=== PATIENT | female | born 1960 | race Caucasian/White ===

== ENCOUNTER 2024-05-13 10:59 | Outpatient (OUT) | payer MEDICARE, SELFPAY ==
--- NOTE | 2024-05-13 07:50 | V.VEINS.HP ---
Vital Signs 05/13/24 11:21 Height 5 ft 6 in Weight 72.575 kg BMI 25.8 BP 120/62 BP Location Left Brachial BP Position Sitting BP Cuff Size Adult BP Source Manual Cuff Respiration 16 Pulse 60 Comment The patient's blood pressure is elevated. Varicose Veins Patient is a 64 year old female in this day with c/o bilateral leg varicose veins Willy Bearden MD personally performed the services described in this documentation, as scribed by Sly Gonzalez RN in my presence and it is both accurate and complete. Sly Bearden RN, am scribing for, and in the presence of, Dr. Willy Flores and in the presence of the patient. aching and dull 3 10 years Worsened in recent months: Yes standing elevating extremities Reports limb pain (bilateral lower legs) History of lower extremity trauma: No Superficial thrombophlebitis: No Family history of varicose veins: yes (Patient's father) Has patient had previous lower extremity venous surgery: No Patient has previously received the following treatment(s) for lower extremity varicose veins: Reports sclerotherapy (2014 Dr. Palacios) Does patient have a history of : yes Does patient intend to have future pregnancies: no Has patient had lower extremity venous scan with relux testing: No Support hose used: No (Patient is willing to purchase them and wear them accordingly) Problems walking or doing physical activity: No Do you walk much: Yes Do you stand much: Yes Review of Systems ROS Narrative Willy Bearden MD personally performed the services described in this documentation, as scribed by Sly Gonzalez RN in my presence and it is both accurate and complete. Sly Bearden RN, am scribing for, and in the presence of, Dr. Willy Flores and in the presence of the patient. Neurological Reports: numbness in extremities and weakness in extremities [facility] Medical History (Updated 05/13/24 @ 11:34 by Sly Gonzalez) Hypercholesteremia ?E78.00 - Pure hypercholesterolemia, unspecified (ICD-10) Tonsil and adenoid disease, chronic ?J35.9 - Chronic disease of tonsils and adenoids, unspecified (ICD-10) Cataract ?H26.9 - Unspecified cataract (ICD-10) Pain due to varicose veins of both lower extremities ?I83.813 - Varicose veins of bilateral lower extremities with pain (ICD-10) Surgical History (Updated 05/13/24 @ 11:33 by Sly Gonzalez) Hx of breast reduction, elective ?Z98.890 - Other specified postprocedural states (ICD-10) Family History (Updated 05/13/24 @ 11:37 by Sly Gonzalez) Father Family history of cancer Varicose veins of bilateral lower extremities with pain Carotid arterial disease Other Family history not known due to adoption Family history of COPD (chronic obstructive pulmonary disease) Family history of myocardial infarction Social History (Updated 05/13/24 @ 11:34 by Sly Gonzalez) Within the past year, how often did you have a drink containing alcohol: monthly or less Smoking status: Never smoker Non-prescribed substance use: denies use Meds Home Medications and Allergies Home Medications ?Medication ?Instructions ?Recorded ?Confirmed ?Type atorvastatin 10 mg tablet (Lipitor) 10 mg PO DAILY 05/13/24 05/13/24 History fluvoxamine 100 mg mg PO 05/13/24 History capsule,extended release 24 hr Exam Narrative Exam Narrative: IWilly MD personally performed the services described in this documentation, as scribed by Sly Gonzalez RN in my presence and it is both accurate and complete. ISly RN, am scribing for, and in the presence of, Dr. Willy Flores and in the presence of the patient. Constitutional Documenting provider has reviewed patient's vital signs: yes Common normals: oriented x3 Nutritional appearance: overweight Cardio Peripheral pulses: dorsalis pedis pulses present Extremity Common normals: normal capillary refill Right lower extremity: lower leg Right lower leg: inspection and palpation Left lower extremity: lower leg Left lower leg: inspection and palpation Neuro Common normals: oriented x3 Assessment and Plan Assessment and Plan (1) Pain due to varicose veins of both lower extremities: Plan Explained vein anatomy and physiology to patient.? Explained the development of varicose veins to patient.? Explained varicose vein treatments to patient, including laser ablation, microfoam chemical ablation (Varithena), injection sclerotherapy and microphlebectomy.? Explained potential risks and benefits of varicose vein treatments. Patient verbalizes understanding and wants to pursue varicose vein treatment. Scheduled to return on? 05/25 for reflux ultrasound exam and comprehensive consult with Dr. Flores.
[2024-05-13 11:21] VITALS: BP 120/62; PULSE 60; BMI 25.8
--- NOTE | 2024-05-13 12:21 | W.VEIN ---
Discharge Plan Discharge Disposition: Home, Self-Care Outpatient Diagnostics: VC Facility EST Comprehensive (Routine) Timeframe: 2 Weeks Facility: [facility] - Location: [facility]in Center Ordered By: Armando Olivas VC EXT Venous Reflux ALMA LMTD (Routine) Timeframe: 2 Weeks Facility: [facility] - Location: Vein Center Ordered By: Armando Olivas Print Language: Sinhala
== END 2024-05-13 11:00 | disposition home or self-care (01) ==
PROVIDERS: PCP Radiology Diagnostic Radiology; Visit Provider Radiology Diagnostic Radiology
DX: I83.813 Varicose veins of bilateral lower extremities with pain (principal)

== ENCOUNTER 2024-05-25 07:53 | Outpatient (OUT) | payer MEDICARE, SELFPAY ==
--- NOTE | 2024-05-25 07:54 | V.VEINS.HP ---
Vital Signs 05/25/24 08:01 Height 5 ft 6 in Weight 72.575 kg BMI 25.8 BP 116/58 BP Location Right Brachial BP Position Sitting BP Cuff Size Adult BP Source Manual Cuff Respiration 16 Pulse 62 Pulse Source Monitor Pulse Oximetry (%) 98 Oxygen Delivery Method Room Air Varicose Veins Patient is a 64 year old female in this day with c/o bilateral leg varicose veins Armando Bearden MD personally performed the services described in this documentation, as scribed by Sly Gonzalez RN in my presence and it is both accurate and complete. ISly RN, am scribing for, and in the presence of, Dr. Armando Olivas and in the presence of the patient. aching and dull 3 10 years Worsened in recent months: Yes standing elevating extremities Reports limb pain (bilateral lower legs) History of lower extremity trauma: No Superficial thrombophlebitis: No Family history of varicose veins: yes (Patient's father) Has patient had previous lower extremity venous surgery: No Patient has previously received the following treatment(s) for lower extremity varicose veins: Reports sclerotherapy (2014 Dr. Palacios) Does patient have a history of : yes Does patient intend to have future pregnancies: no Has patient had lower extremity venous scan with relux testing: No Support hose used: Yes Problems walking or doing physical activity: No How does it affect you: often has to stop activity and rest and elevate legs/feet Do you walk much: Yes Do you stand much: Yes Review of Systems ROS Narrative Armando Bearden MD personally performed the services described in this documentation, as scribed by Sly Gonzalez RN in my presence and it is both accurate and complete. Sly Bearden RN, am scribing for, and in the presence of, Dr. Armando Olivas and in the presence of the patient. Neurological Reports: numbness in extremities and weakness in extremities [facility] Medical History (Updated 05/13/24 @ 11:34 by Sly Gonzalez) Hypercholesteremia ?E78.00 - Pure hypercholesterolemia, unspecified (ICD-10) Tonsil and adenoid disease, chronic ?J35.9 - Chronic disease of tonsils and adenoids, unspecified (ICD-10) Cataract ?H26.9 - Unspecified cataract (ICD-10) Pain due to varicose veins of both lower extremities ?I83.813 - Varicose veins of bilateral lower extremities with pain (ICD-10) Surgical History (Updated 05/13/24 @ 11:33 by Sly Gonzalez) Hx of breast reduction, elective ?Z98.890 - Other specified postprocedural states (ICD-10) Family History (Updated 05/13/24 @ 11:37 by Sly Gonzalez) Father Family history of cancer Varicose veins of bilateral lower extremities with pain Carotid arterial disease Other Family history not known due to adoption Family history of COPD (chronic obstructive pulmonary disease) Family history of myocardial infarction Social History (Updated 05/13/24 @ 11:34 by Sly Gonzalez) Within the past year, how often did you have a drink containing alcohol: monthly or less Smoking status: Never smoker Non-prescribed substance use: denies use Meds Home Medications and Allergies Home Medications ?Medication ?Instructions ?Recorded ?Confirmed ?Type atorvastatin 10 mg tablet (Lipitor) 10 mg PO DAILY 05/13/24 05/13/24 History fluvoxamine 100 mg mg PO 05/13/24 History capsule,extended release 24 hr Allergies Allergy/AdvReac Type Severity Reaction Status Date / Time No Known Drug Allergies Allergy Verified 05/13/24 12:22 Exam Narrative Exam Narrative: Armando Bearden MD personally performed the services described in this documentation, as scribed by Sly Gonzalez RN in my presence and it is both accurate and complete. Sly Bearden RN, am scribing for, and in the presence of, Dr. Armando Olivas and in the presence of the patient.. Constitutional Documenting provider has reviewed patient's vital signs: yes Common normals: oriented x3 Nutritional appearance: overweight Cardio Peripheral pulses: dorsalis pedis pulses present Extremity Common normals: normal capillary refill Right lower extremity: lower leg Right lower leg: inspection and palpation Left lower extremity: lower leg Left lower leg: inspection and palpation Neuro Common normals: oriented x3 Results Additional Findings Additional findings: Bilateral leg reflux u/s reveals mild right and mild to moderate left great saphenous venous insufficiency with associated dilation. Mild to moderate bilateral leg anterior accessory saphenous vein dilation with dilation. Mild bilateral leg branch saphenous truncal varicosities. Armando Bearden MD personally performed the services described in this documentation, as scribed by Sly Gonzalez RN in my presence and it is both accurate and complete. I, Sly Carlos RN, am scribing for, and in the presence of, Dr. Armando Olivas and in the presence of the patient. Assessment and Plan Assessment and Plan (1) Pain due to varicose veins of both lower extremities: Plan Patient to continue use of bilateral leg knee high compressions stockings and return for f/u 3 month evaluation. If noted decrease in symptoms move forward with treatment at that time. Armando Bearden MD personally performed the services described in this documentation, as scribed by Sly Gonzalez RN in my presence and it is both accurate and complete. Sly Bearden RN, am scribing for, and in the presence of, Dr. Armando Olivas and in the presence of the patient.
--- NOTE | 2024-05-25 07:57 | W.VEIN ---
Discharge Plan Discharge Disposition: Home, Self-Care Follow Up Appointments: 08/09/2024 Plan of Treatment: f/u evaluation with physician post 3 month administration of bilateral leg knee high compression stockings Print Language: Persian Discharge Date/Time: 05/25/24 09:35
--- NOTE | 2024-05-25 07:58 | VEIN_ITS ---
Patient Name: SYED ESTEBAN MR#: [id number] : 1960 Exam Date: 05/25/2024 Ordering Doctor: DR ARMANDO GRIJALVA M.D. RADIOLOGY REPORT PROCEDURE: [facility] - OFFICE VISIT INITIAL COMPARISON: None. PROGRESS NOTES: 64-year-old female who presents with a 10 year history of lower extremity varicose veins with mild achy dull pain. No subcutaneous edema. The patient rates pain as a 3 on a scale of 1-10. The patient's symptoms are exacerbated by prolonged standing and are minimally relieved by compression stockings which she wore years ago but not in the recent past. The patient has previously been treated by Dr. Palacios with injection sclerotherapy. There has been a progression of symptoms in the past year. The patient denies any signs and symptoms to suggest arterial ischemia. The patient describes a family history significant for varicose veins in her father. Occasional social alcohol use. The patient has never smoked. No illicit drug use. Past surgical history significant for breast reduction. Current medical history significant for hypercholesterolemia, cataract. Family history of cancer varicose veins in carotid arterial disease. See nursing notes for medications. No history of deep venous thrombus or pulmonary embolus. See separate history and physical for medication list. Nursing notes were reviewed After history and physical exam I discussed at length the pathophysiology of venous hypertension and possible treatments, therapies and strategies available. We discussed at length the importance of elevating the lower extremities above the level of the heart, increased physical activity and compression stocking use. The patient was prescribed and received 20-30 mm by lateral thigh-high compression stockings to wear for the next 3-4 months before any treatments are started. We did discuss intravenous laser ablation, micro foam chemical ablation and injection sclerotherapy at length. Risks benefits alternatives were discussed Ultrasound venous reflux study performed the same day was discussed at length with the patient. The report demonstrates mild right and [id number] left great saphenous vein venous insufficiency. Mild to moderate bilateral anterior accessory saphenous vein venous insufficiency. Mild right and moderate left deep vein reflux period mild bilateral incompetent varicose veins. PHYSICAL EXAM: The right leg demonstrates mild scattered varicose, moderate diffuse reticular and spider veins along the thigh lower leg and ankles. No subcutaneous edema, active ulceration or hemosiderin staining The left leg demonstrates mild scattered varicose, moderate diffuse reticular and spider veins along the thigh lower leg and ankles. No subcutaneous edema, active ulceration or hemosiderin staining Both thighs, legs and feet were symmetrically warm to the touch. Good posterior tibial and dorsalis pedis pulses were present bilaterally. VEIN/VC Facility EST Comprehensive IMPRESSION: 1. Bilateral great bilateral anterior accessory saphenous vein venous insufficiency with some scattered dilatation in saphenofemoral junction reflux 2. Mild bilateral lower extremity varicose veins 3. No definite lower extremity subcutaneous edema 4. No definite flow significant arterial disease 5. CEAP: C2, Ep, As, Pr PLAN: 1. Begin daily use of bilateral thigh-high 20-30 mm compression stockings 2. Leg elevation and increased physical activity 3. Follow-up in 3 months Nurse notes, history and physical were reviewed and confirmed, see attached forms. The nurse was present throughout the physical exam and consultation Dictated by: Armando Grijalva MD on 05/25/2024 at 11:47 Approved by: Armando Grijalva MD on 05/25/2024 at 11:53
--- NOTE | 2024-05-25 07:58 | VEIN_ITS ---
Patient Name: SYED ESTEBAN MR#: [id number] : 1960 Exam Date: 05/25/2024 Ordering Doctor: DR ARMANDO GRIJALVA M.D. RADIOLOGY REPORT PROCEDURE: VC EXT VENOUS REFLUX ALMA LMTD COMPARISON: None. INDICATIONS: I83.813 - Varicose veins of bilateral lower extremities with pain TECHNIQUE: Duplex imaging of the lower extremity to assess the deep and superficial venous system for the presence of deep or superficial venous incompetence and to document the location and severity of disease. The study includes evaluation of the great saphenous vein (GSV), anterior accessory saphenous vein (AASV) and small saphenous vein (SSV). Patient scanned in reverse Trendelenburg and standing. FINDINGS: RIGHT LOWER EXTREMITY: Saphenofemoral Junction Reflux: Yes 10.0mm 1.2 sec GSV: Diam (mm) Reflux/ Time (sec) Proximal Thigh 3.8 Yes 0.6 Mid Thigh 3.2 Yes 0.5 Distal Thigh 1.9 Yes 0.5 Prox Calf 2.7 Yes 1.1 Mid Calf 2.2 Yes 0.4 Saphenopopliteal Junction Reflux: 5.5mm Yes 2.2 SSV: Proximal Calf 5.5 Yes 0.6 Mid Calf 3.7 Yes 0.5 AASV: Proximal Thigh 5.9 Yes 0.7 Mid Thigh 3.5 Yes 2.4 Distal Thigh Thrombi: No acute or chronic thrombus. Compressibility: Normal. Flow: Mild deep venous reflux. Preforator: Distal medial lower leg 3.9 mm with 2.9s reflux. Tech Note: Incompetent varicose vein proximal medial calf measures 4.0 mm with 4.5s reflux. Varicose vein distal medial thigh measures 3.0 mm with 0.5s reflux. LEFT LOWER EXTREMITY: Saphenofemoral Junction Reflux: Yes 8.1 mm 0.4 sec GSV: Diam (mm) Reflux/Time (sec) Proximal Thigh 6.4 Yes 0.4 Mid Thigh 3.5 Yes 1.2 Distal Thigh 3.8 Yes 1.4 Prox Calf 3.3 Yes 0.6 Mid Calf 3.0 Yes 1.1 Saphenopopliteal Junction Relux: 3.6 mm No SSV: Proximal Calf 2.6 No Mid Calf 3.4 Yes 4.2 AASV: Proximal Thigh 6.3 Yes 1.3 Mid Thigh 3.3 Yes 0.5 Distal Thigh Thrombi: No acute or chronic thrombus. Compressibility: Normal. Flow: Moderate deep venous reflux in femoral vein. Attache: Mid medial lower leg 3.7 mm with 1.3s reflux. Tech Note: Incompetent varicose vein proximal medial lower leg measures 2.4 mm with 4.0s reflux. CONCLUSION: 1. Mild right and [id number] left great saphenous vein venous insufficiency with mild dilatation 2. Mlvb-[id number] bilateral anterior accessory saphenous vein venous insufficiency with dilatation 3. Mild right and moderate left deep vein reflux 4. Mild bilateral incompetent varicose veins Dictated by: Armando Grijalva MD on 05/25/2024 at 08:58 Approved by: Armando Grijalva MD on 05/25/2024 at 09:01
[2024-05-25 08:01] VITALS: BP 116/58; PULSE 62; O2SAT 98; BMI 25.8
== END 2024-05-25 09:35 | disposition home or self-care (01) ==
PROVIDERS: PCP Radiology Diagnostic Radiology; Visit Provider Radiology Diagnostic Radiology
DX: I83.813 Varicose veins of bilateral lower extremities with pain (principal)
CPT/HCPCS: 93970; G0463

== ENCOUNTER 2024-08-09 09:01 | Outpatient (OUT) | payer MEDICARE, SELFPAY ==
--- NOTE | 2024-08-09 08:05 | V.VEINS.HP ---
Vital Signs 08/09/24 09:07 BP 116/68 BP Location Left Brachial BP Position Sitting BP Cuff Size Adult BP Source Manual Cuff Respiration 16 Pulse 61 Pulse Source Monitor Pulse Oximetry (%) 96 Oxygen Delivery Method Room Air Varicose Veins Patient in this day for 3 month follow up for bilateral painful varicose veins. Patient has been wearing knee high compression stockings consistently for the past 3 months with minimal improvement. Continues to have BLE pain daily. Armando Bearden MD personally performed the services described in this documentation, as scribed by Nel Valerio RN in my presence and it is both accurate and complete. INel RN, am scribing for, and in the presence of, Dr. Armando Olivas and in the presence of the patient. aching and dull 3 10 years Worsened in recent months: Yes standing elevating extremities Reports limb pain (bilateral lower legs) History of lower extremity trauma: No Superficial thrombophlebitis: No Family history of varicose veins: yes (Patient's father) Has patient had previous lower extremity venous surgery: No Patient has previously received the following treatment(s) for lower extremity varicose veins: Reports sclerotherapy (2014 Dr. Palacios) Does patient have a history of : yes Does patient intend to have future pregnancies: no Has patient had lower extremity venous scan with relux testing: No Support hose used: Yes Problems walking or doing physical activity: No How does it affect you: often has to stop activity and rest and elevate legs/feet Do you walk much: Yes Do you stand much: Yes Review of Systems ROS Narrative Armando Bearden MD personally performed the services described in this documentation, as scribed by Nel Valerio RN in my presence and it is both accurate and complete. Nel Bearden RN, am scribing for, and in the presence of, Dr. Armando Olivas and in the presence of the patient. Neurological Reports: numbness in extremities and weakness in extremities [facility] Medical History (Updated 05/13/24 @ 11:34 by Sly Gonzalez) Hypercholesteremia ?E78.00 - Pure hypercholesterolemia, unspecified (ICD-10) Tonsil and adenoid disease, chronic ?J35.9 - Chronic disease of tonsils and adenoids, unspecified (ICD-10) Cataract ?H26.9 - Unspecified cataract (ICD-10) Pain due to varicose veins of both lower extremities ?I83.813 - Varicose veins of bilateral lower extremities with pain (ICD-10) Surgical History (Updated 05/13/24 @ 11:33 by Sly Gonzalez) Hx of breast reduction, elective ?Z98.890 - Other specified postprocedural states (ICD-10) Family History (Updated 05/13/24 @ 11:37 by Sly Gonzalez) Father Family history of cancer Varicose veins of bilateral lower extremities with pain Carotid arterial disease Other Family history not known due to adoption Family history of COPD (chronic obstructive pulmonary disease) Family history of myocardial infarction Social History (Updated 05/13/24 @ 11:34 by Sly Gonzalez) Within the past year, how often did you have a drink containing alcohol: monthly or less Smoking status: Never smoker Non-prescribed substance use: denies use Meds Home Medications and Allergies Home Medications ?Medication ?Instructions ?Recorded ?Confirmed ?Type atorvastatin 10 mg tablet (Lipitor) 10 mg PO DAILY 05/13/24 05/13/24 History fluvoxamine 100 mg mg PO 05/13/24 History capsule,extended release 24 hr Allergies Allergy/AdvReac Type Severity Reaction Status Date / Time No Known Drug Allergies Allergy Verified 05/13/24 12:22 Exam Narrative Exam Narrative: IArmando MD personally performed the services described in this documentation, as scribed by Nel Valerio RN in my presence and it is both accurate and complete. INel RN, am scribing for, and in the presence of, Dr. Armando Olivas and in the presence of the patient. Constitutional Documenting provider has reviewed patient's vital signs: yes Common normals: oriented x3 Nutritional appearance: overweight Cardio Peripheral pulses: dorsalis pedis pulses present Extremity Common normals: normal capillary refill Right lower extremity: lower leg Right lower leg: inspection and palpation Left lower extremity: lower leg Left lower leg: inspection and palpation Neuro Common normals: oriented x3 Assessment and Plan Assessment and Plan (1) Pain due to varicose veins of both lower extremities: Plan Explained vein anatomy and physiology to patient. Explained the development of varicose veins to patient.? Explained varicose vein treatments to patient, including laser ablation, microfoam chemical ablation (Varithena), injection sclerotherapy and microphlebectomy.? Explained potential risks and benefits of varicose vein treatments.? Patient verbalizes understanding and wants to pursue varicose vein treatment.? Dr. Olivas examines patient and reviews results of bilateral leg reflux u/s.? Patient and Dr. Olivas creates a plan of care.? Patient also agrees to purchase bilateral thigh high compression stockings and wear them as educated.? Patient also educated on exercise and rest elevation of bilateral legs. Will prior authorize treatment plan with patients insurance and then call patient to schedule procedure when approved. IArmando MD personally performed the services described in this documentation, as scribed by Nel Valerio RN in my presence and it is both accurate and complete. I, Nel Valerio RN, am scribing for, and in the presence of, Dr. Armando Olivas and in the presence of the patient.
--- NOTE | 2024-08-09 08:07 | P.DS_ITS ---
Discharge Plan Discharge Disposition: Home, Self-Care Outpatient Diagnostics: VC Endovenous Ablation 1VeinLT (Routine) Timeframe: 2 Months Facility: [facility] [place] - Location: Vein Center Ordered By: Armando Olivas Follow Up Appointments: will call to schedule Plan of Treatment: Requires prior authorization. Will call patient to schedule when approved by insurance. Patient Instructions: Endovenous Ablation (GEN) Print Language: Comoran Discharge Date/Time: 08/09/24 09:41
--- NOTE | 2024-08-09 09:05 | VEIN_ITS ---
Patient Name: SYED ESTEBAN MR#: [id number] : 1960 Exam Date: 08/09/2024 Ordering Doctor: DR ARMANDO GRIJALVA M.D. [place] Corrected on: 08/10/2024; RADIOLOGY REPORT PROCEDURE: [facility] - OFFICE VISIT FOLLOW UP COMPARISON: None. PROGRESS NOTES: The patient reports wearing her compression stockings for the past 3 months. The patient has some moderate improvement in her symptoms but continues to have symptoms which she would like to have treatment for. Physical exam is stable with bilateral varicose reticular and spider veins, left greater than right The patient expressed a desire to proceed with treatment of the left leg at this time. VEIN/[facility] IMPRESSION: 1. Persistent varicose reticular and spider veins 2. Bilateral leg pain with mild improvement with the use of compression stockings PLAN: 1. Endovenous laser ablation of the left great saphenous vein. If the patient shows improvement we will proceed with intravenous laser ablation of the right great saphenous vein and possibly bilateral anterior accessory saphenous veins 2. Micro foam chemical ablation of incompetent varicose veins 3. Injection sclerotherapy reticular and spider veins Nurse notes, history and physical were reviewed and confirmed, see attached forms. The nurse was present throughout the physical exam and consultation Dictated by: Armando Grijalva MD on 08/09/2024 at 13:05 Approved by: Armando Grijalva MD on 08/09/2024 at 13:09 Dictated by: Armando Grijalva MD on 08/10/2024 at 08:27 Approved by: Armando Grijalva MD on 08/10/2024 at 08:27
[2024-08-09 09:07] VITALS: BP 116/68; PULSE 61; O2SAT 96
--- OUTSIDE RECORDS SUMMARY | 2024-08-09 09:22 | XMS_ITS | CCD ---
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 Keturah Flores DIRECTOR MEDICAL Work Phone: [facility] Comment on above: Acute pain of left k nee (Primary Dx); Right elbow pain Start: 11-30-2023 End: 11-30-2023 ambulatory KETURAH FLORES Not Available Start: 09-14-2023 End: 09-14-2023 ambulatory DASH PYLE Not Available Start: 09-12-2023 End: 09-12-2023 ambulatory MARSHA COOLEY Not Available Start: 04-01-2022 Current tobacco non-user cad cap copd pv dm Emmy Grove Work Phone: [facility] Work Phone: Start: 09-15-2020 End: 09-16-2020 Patient encounter procedure NATHALIA SHANE Facility:[facility] Start: 10-08-2019 End: 10-08-2019 Patient encounter procedure FLAQUITA RENAE Facility:[facility] Procedures Date Procedure Procedure Detail Performing Clinician Start: 07-23-2023 Mammography Keturah lauren DIRECTOR MEDICAL Work Phone: Start: 05-14-2017 Colonoscopy Keturah lauren DIRECTOR MEDICAL Work Phone: Plan of Treatment Date Care Activity Detail Author Start: 05-14-2027 Screening for malignant neoplasm of colon [facility] Start: 07-04-2026 Screening for malignant neoplasm of cervix [facility] Start: 07-23-2024 Screening for malignant neoplasm of breast Mammogram [facility] Start: 07-05-2024 End: 07-05-2024 Patient encounter procedure 07/05/2024 10:00 AM EDT Office Visit [facility] [address] [place] [address] Emmy Grove MD [address] [place] [address] [facility] Start: 12-11-2023 End: 12-11-2023 ambulatory 12/11/2023 8:30 AM EST Treatment [facility] [address] [facility] [address] [place] [address] Griselda Wilkins, SRIDEVI [facility] Start: 12-08-2023 End: 12-08-2023 ambulatory 12/08/2023 1:30 PM EST Treatment [facility] [address] [facility] [address] [place] [address] Lisbet Mathias PTA [facility] Start: 12-08-2023 End: 12-08-2023 ambulatory 12/08/2023 8:30 AM EST Treatment [facility] [address] [facility] [address] [place] [id number] Griselda Wilkins PTA Arrived [facility] Comment on above: Arrived Start: 12-04-2023 End: 12-04-2023 ambulatory [facility] Comment on above: Acute pain of left k nee (Primary Dx); Acute pain of right shoulder Start: 11-30-2023 End: 11-30-2024 XR Knee - left 4 Views XR knee 4+ views left Imaging Routine Acute pain of left knee Expected: 11/30/2023, Expires: 11/30/2024 [facility] Work Phone: Comment on above: Expected: 11/30/2023 , Expires: 11/30/2024 Start: 11-30-2023 End: 11-30-2023 Patient encounter procedure 11/30/2023 8:30 AM EST Office Visit [facility] [address] [place] [id number] Keturah Flores NP [address] [place] [address] Arrived [facility] Comment on above: Arrived Start: 1980 Screening for malignant neoplasm of cervix Pap Smear [facility] Start: 1959 Screening for malignant neoplasm of colon [facility] Immunizations Immunization Date Immunization Notes Care Provider Fa shira 07-17-2023 influenza, injectabl e, quadrivalent, preservative free Keturah Flores NP Work Phone: [facility] 08-08-2022 Moderna Bivalent Booster Vaccination Keturah Membrenopatrick DIRECTOR MEDICAL Work Phone: [facility] 08-08-2022 SARS-COV-2 (COVID-19 ) vaccine, mRNA, spike protein, LNP, bivalent, preservative free, 30 mcg/0.3 mL dose, brittani-sucrose formulation Keturah Michaelzpatrick DIRECTOR MEDICAL Work Phone: [facility] 07-08-2022 influenza, injectabl e, quadrivalent, preservative free Keturah Flores DIRECTOR MEDICAL Work Phone: [facility] 07-24-2021 influenza, injectabl e, quadrivalent, preservative free Keturah Flores DIRECTOR MEDICAL Work Phone: [facility] 07-16-2020 influenza, injectabl e, quadrivalent, preservative free Keturah Flores DIRECTOR MEDICAL Work Phone: [facility] 10-08-2019 tetanus toxoid, redu valentino diphtheria toxoid, and acellular pertussis vaccine, adsorbed Keturah Flores DIRECTOR MEDICAL Work Phone: [facility] 08-24-2019 influenza, injectabl e, quadrivalent, contains preservative Keturah Flores DIRECTOR MEDICAL Work Phone: [facility] 04-13-2019 zoster vaccine recombinant Keturah Flores DIRECTOR MEDICAL Work Phone: [facility] 01-24-2019 zoster vaccine recombinant Keturah Flores DIRECTOR MEDICAL Work Phone: [facility] 08-11-2018 influenza, injectabl e, quadrivalent, contains preservative Keturah Flores DIRECTOR MEDICAL Work Phone: [facility] 08-17-2017 influenza, injectabl e, quadrivalent, preservative free Keturah Flores DIRECTOR MEDICAL Work Phone: [facility] 08-11-2016 influenza, injectabl e, quadrivalent, preservative free Keturah Flores DIRECTOR MEDICAL Work Phone: [facility] 08-20-2015 influenza, seasonal, injectable, preservative free Keturah Faustintrick DIRECTOR MEDICAL Work Phone: [facility] 07-06-2015 zoster vaccine, live Keturah Faustintrick DIRECTOR MEDICAL Work Phone: [facility] 08-11-2014 influenza, seasonal, injectable, preservative free Keturah Faustintrick DIRECTOR MEDICAL Work Phone: [facility] 06-09-2013 zoster vaccine, live Keturah Faustintrick DIRECTOR MEDICAL Work Phone: [facility] 05-20-2011 tetanus and diphther ia toxoids, adsorbed, preservative free, for adult use (5 Lf of tetanus toxoid and 2 Lf of diphtheria toxoid) Keturah Membrenopatrick DIRECTOR MEDICAL Work Phone: [facility] 05-20-2011 tetanus toxoid, redu valentino diphtheria toxoid, and acellular pertussis vaccine, adsorbed Keturahchung FaustinFlores DIRECTOR MEDICAL Work Phone: [facility] 10-23-2009 novel [id number], preservative-free, injectable Keturah Faustintrick DIRECTOR MEDICAL Work Phone: [facility] Payers Date Payer Category Payer Self-pay 2024 Medicare [id number] 2023 Managed Care HMO (unspecified) AET[employer] AETNA [id number] 2023-Present [address] [place] [address] HMO [id number] 2023 Private Health Insurance [id number] 1959 Unknown [id number] 1959 Unknown [id number] [id number] 1959 Unknown [id number] 2.16.840.1.196595.3.579.2.5 1959 Unknown [id number] 2.16.840.1.835784.3.579.2.1 286 1959 Unknown [id number] 2.16.840.1.120166.3.579.2.1 259 1959 Unknown [id number] 2.16.840.1.964935.3.579.2.1 259 1959 Unknown [id number] 2.16.840.1.215533.3.579.2.1 259 1959 Unknown [id number] 2.16.840.1.733865.3.579.2.1 259 1959 Unknown [id number] 2.16.840.1.354793.3.579.2.1 259 1959 Unknown [id number] 2.16.840.1.614174.3.579.2.1 259 1959 Unknown [id number] 2.16.840.1.008449.3.579.2.1 259 1959 Unknown [id number] 2.16.840.1.282328.3.579.2.1 259 1959 Unknown [id number] 2.16.840.1.380833.3.579.2.1 259 1959 Unknown [id number] 2.16.840.1.890331.3.579.2.1 259 1959 Unknown [id number] 2.16.840.1.612182.3.579.2.1 259 1959 Unknown [id number] 2.16.840.1.288569.3.579.2.1 259 1959 Unknown [id number] 2.16.840.1.577085.3.579.2.1 259 Unknown [facility] Unknown [id number] 2.16.840.1.572272.3.579.2.5 31 Social History Date Type Detail Facility Start: 03-19-2023 Tobacco smoking status NHIS Never smoked tobacco [facility] Work Phone: Start: 03-19-2023 Tobacco use and exposure Smokeless tobacco non-user [facility] Start: 09-12-2023 End: 11-30-2023 Alcohol intake Current drinker of alcohol (finding) [facility] Start: 07-16-2023 End: 11-30-2023 History of Social function [facility] Start: 07-16-2023 End: 11-30-2023 Humiliation, Afraid, Rape, and Kick questionnaire [HARK] [facility] Within the last year , have you been afraid of your partner or ex-partner? No [facility] Do you belong to any clubs or organizations such as yarsanism groups, unions, fraternal or athletic groups, or school groups? Yes [facility] Are you now , , , , never or living with a partner? [facility] How often to you hav e a drink containing alcohol? Monthly or less [facility] How many standard dr inks containing alcohol do you have on a typical day? 1 or 2 [facility] How often do you hav e 6 or more drinks on 1 occasion? Never [facility] How hard is it for y ou to pay for the very basics like food, housing, medical care, and heating Not hard at all [facility] Do you feel stress - tense, restless, nervous, or anxious, or unable to sleep at night because your mind is troubled all the time - these days [OSQ] Not at all [facility] (I/We) worried wheth er (my/our) food would run out before (I/we) got money to buy more. Never true [facility] Start: 07-16-2023 Alcohol Comment 1-0 drinks a week [facility] Start: 1960 Sex Assigned At Female [facility] Start: 03-19-2023 Gender identity Identifies as female gender (finding) [facility] Start: 03-19-2023 Sexual orientation Heterosexual (finding) [facility] Goals Date Patient Goal Desired Activity /State Personal health goal History of Present illness Narrative 11-30-2023 Keturah Flores, LAWRENCE - 11/30/2023 8:30 AM EST Note Date & Type Note Facility 11-30-2023 History of Presen t illness Narrative Blanca Mcginnis is a 63 y.o. female presents with chief complaint of Knee Pain HPI: HPI Patient presents today with left knee pain, swelling and tenderness. Pt states she injuried it years ago while in high school tumbling she fel between two mats and her knee swelled up. Pt also states she is having left elbow pain, she was given exercises and wondering if she should do those so often. SUBJECTIVE: MEDICATIONS: Current Outpatient Medications Medication Instructions atorvastatin (LIPITOR) 10 mg, Oral, Every 24 hours fluvoxaMINE (LUVOX) 100 mg, Oral, Every 12 hours, Takes 150mg at night Magnesium 500 MG capsule 1 tablet, Oral, Every 24 hours melatonin 5 mg, Oral, Nightly PRN REVIEW OF SYMPTOMS: Review of Systems Constitutional: Negative for chills and fatigue. HENT: Negative for ear discharge, ear pain, rhinorrhea and sore throat. Eyes: Negative for pain and redness. Respiratory: Negative for cough and chest tightness. Cardiovascular: Negative for chest pain and palpitations. Gastrointestinal: Negative for abdominal distention and abdominal pain. Genitourinary: Negative for difficulty urinating and frequency. Musculoskeletal: Negative for arthralgias and gait problem. Skin: Negative. Neurological: Negative for dizziness and numbness. Endocrine: Negative. Allergic/Immunologic: Negative. OBJECTIVE: Visit Vitals BP 126/80 Pulse 64 Ht 5' 6 Wt 163 lb 9.6 oz SpO2 96% BMI 26.41 kg/m Smoking Status Never BSA 1.86 m Physical Exam Vitals reviewed. Cardiovascular: Rate and Rhythm: Normal rate and regular rhythm. Pulses: Normal pulses. Heart sounds: Normal heart sounds. Pulmonary: Effort: Pulmonary effort is normal. Breath sounds: Normal breath sounds. Abdominal: General: Abdomen is flat. Bowel sounds are normal. Palpations: Abdomen is soft. Musculoskeletal: Left knee: Swelling and crepitus present. No erythema. Decreased range of motion. Tenderness present over the medial joint line. Skin: General: Skin is warm and dry. Neurological: General: No focal deficit present. Mental Status: She is oriented to person, place, and time. ASSESSMENT AND PLAN: Assessment/Plan Diagnoses and all orders for this visit: Acute pain of left knee - XR knee 4+ views left; Future Ice, rest, ibuprofen. Knee sleeve when working. Await results. May need PT or ortho. Right elbow pain Continue on exercises that were provided. Rest when it gets painful. documented in this encounter [facility] Evaluation note Note Date & Type Note Facility Evaluation note Diagnosis Acute pain of left knee- Primary Right elbow pain Pain in joint, upper arm documented in this encounter [facility] Evaluation note Note Date & Type Note Facility Evaluation note Diagnosis Acute pain of left knee documented in this encounter [facility] Evaluation note Note Date & Type Note Facility Evaluation note Diagnosis Acute pain of left knee- Primary documented in this encounter [facility] History of Present illness Narrative Note Date & Type Note Facility History of Present illness Narrative Triage note, vital signs, past medical history and allergies -tdyn-scf female with complaints of a laceration to her left middle fingertip. She states today she was cutting watermelon and she cut the tip of her left finger. There is a 1 cm avulsion at the lateral tip of the left middle finger with nail involvement. Bleeding is controlled. Patient has good sensation and movement in the finger. She states she is up-to-date on her tetanus vaccine. She denies any significant past medical problems. [facility] Work Phone: Summary Purpose Family History No Family History Records FoundNo Family History Records FoundNo Family History Records FoundNo Family History Records FoundNo Family History Records FoundNo Family History Records Found Advance Directives No Advanced Directives Records FoundNo Advanced Directives Records FoundNo Advanced Directives Records FoundNo Advanced Directives Records FoundNo Advanced Directives Records FoundNo Advanced Directives Records Found Chief Complaint laceration to finger cutting watermelon Additional Source Comments INFORMATION SOURCE (unrecogn ized section and content) DATE CREATED AUTHOR 09/20/2020 [facility] DATE CREATED AUTHOR AUTHOR'S ORGANIZ ATION 04/02/2022 [employer] DATE CREATED AUTHOR AUTHOR'S ORGANIZ ATION 07/08/2022 [facility] dical Specialist DATE CREATED AUTHOR AUTHOR'S ORGANIZ ATION 01/15/2024 [facility] DATE CREATED AUTHOR AUTHOR'S ORGANIZ ATION 07/30/2024 [facility] DATE CREATED AUTHOR AUTHOR'S ORGANIZ ATION 07/30/2024 [facility]ists EPIC Care Teams (unrecognized sec tion and content) Case Consultant Relationship Specialty Start Date End Date Emmy Grove MD [address] [place] [address] PCP - General Family Medicine 03/19/23 Saadia Deras NP [address] [place] [address] PCP - Medical [employer] 03/26/23 Case Consultant Relationship Specialty Start Date End Date Emmy Grove MD [address] [place] [address] PCP - General Family Medicine 03/19/23 Saadia Deras NP [address] [place] [address] PCP - Medical [employer] 03/26/23 Case Consultant Relationship Specialty Start Date End Date Emmy Grove MD [address] [place] [address] PCP - General Family Medicine 03/19/23 Saadia Deras NP [address] [place] [address] PCP - Medical [employer] 03/26/23 Case Consultant Relationship Specialty Start Date End Date Emmy Grove MD [address] [place] [address] PCP - General Family Medicine 03/19/23 Saadia Deras NP [address] [place] [address] PCP - Medical [employer] 03/26/23 Case Consultant Relationship Specialty Start Date End Date Emmy Grove MD [address] [facility] [place] [address] PCP - General Family Medicine 03/19/23 Saadia Deras NP [address] [facility] [place] [address] PCP - Medical [employer] 03/26/23 Case Consultant Relationship Specialty Start Date End Date Emmy Grove MD [address] [facility] [place] [address] PCP - General Family Medicine 03/19/23 Saadia Deras NP [address] [facility] [place] [address] PCP - Medical [employer] 03/26/23 Case Consultant Relationship Specialty Start Date End Date Emmy Grove MD [address] [facility] [place] [address] PCP - General Family Medicine 03/19/23 Saadia Deras NP [address] [facility] [place] [address] PCP - Medical [employer] 03/26/23 Reason for Visit (unrecogniz ed section and content) Reason Comments Knee Pain Specialty Diagnoses / Procedures Referred By Imer motta Referred To Contact Physical Therapy Diagnoses Acute pain of left knee Procedures IN OFFICE/OUTPATIENT NEW HIGH MDM 60 MINUTES Keturah Flores NP [address] [place] [address] Jose Molina, PT [address] [facility] [address] [place] [address] Referral ID Status Reason Start Date Expiration Date Visits Requested Visits Authorized [id number] Authorized Specialty Services Required 12/01/2023 05/29/2024 99 99 FOR RECORDS PERTAINING TO PATIENTS WHO ARE OR HAVE BEEN ENROLLED IN A CHEMICAL DEPENDENCY/SUBSTANCEABUSE PROGRAM, SOME INFORMATION MAY BE OMITTED. This clinical summary was aggregated from multiple sources. Caution should be exercised in using it in the provision of clinical care. This summary normalizes information from multiple sources, and as a consequence, information in this document may materially change the coding, format and clinical context of patient data. In addition, data may be omitted in some cases. CLINICAL DECISIONS SHOULD BE BASED ON THE PRIMARY CLINICAL RECORDS. [facility] [employer] [facility]. provides no warranty or guarantee of the accuracy or completeness of information in this document.
== END 2024-08-09 09:41 | disposition home or self-care (01) ==
LOC: VC 09:02
PROVIDERS: PCP Radiology Diagnostic Radiology; Visit Provider Radiology Diagnostic Radiology
DX: I83.813 Varicose veins of bilateral lower extremities with pain (principal)
CPT/HCPCS: G0463

== ENCOUNTER 2024-08-29 08:44 | Outpatient (OUT) | payer MEDICARE, SELFPAY ==
--- NOTE | 2024-08-26 07:26 | VEINCLINIC_ITS ---
Vital Signs 08/29/24 09:08 BP 120/58 BP Location Left Brachial BP Position Sitting BP Cuff Size Adult BP Source Manual Cuff Respiration 16 Pulse 61 Pulse Source Monitor Pulse Oximetry (%) 96 Oxygen Delivery Method Room Air Comment The patient's blood pressure is elevated. Varicose Veins Patient in this day for EVLT of left GSV Armando Bearden MD personally performed the services described in this documentation, as scribed by Sly Gonzalez RN in my presence and it is both accurate and complete. ISly RN, am scribing for, and in the presence of, Dr. Armando Olivas and in the presence of the patient. aching and dull 3 10 years Worsened in recent months: Yes standing elevating extremities Reports limb pain (bilateral lower legs) History of lower extremity trauma: No Superficial thrombophlebitis: No Family history of varicose veins: yes (Patient's father) Has patient had previous lower extremity venous surgery: No Patient has previously received the following treatment(s) for lower extremity varicose veins: Reports sclerotherapy (2014 Dr. Palacios) Does patient have a history of : yes Does patient intend to have future pregnancies: no Has patient had lower extremity venous scan with relux testing: No Support hose used: Yes Problems walking or doing physical activity: No How does it affect you: often has to stop activity and rest and elevate legs/feet Do you walk much: Yes Do you stand much: Yes Review of Systems ROS Narrative Armando Bearden MD personally performed the services described in this documentation, as scribed by Sly Gonzalez RN in my presence and it is both accurate and complete. ISly RN, am scribing for, and in the presence of, Dr. Armando Olivas and in the presence of the patient. Neurological Reports: numbness in extremities and weakness in extremities [facility] Medical History (Updated 05/13/24 @ 11:34 by Sly Gonzalez) Hypercholesteremia ?E78.00 - Pure hypercholesterolemia, unspecified (ICD-10) Tonsil and adenoid disease, chronic ?J35.9 - Chronic disease of tonsils and adenoids, unspecified (ICD-10) Cataract ?H26.9 - Unspecified cataract (ICD-10) Pain due to varicose veins of both lower extremities ?I83.813 - Varicose veins of bilateral lower extremities with pain (ICD-10) Surgical History (Updated 08/29/24 @ 09:30 by Sly Gonzalez) Status post laser ablation of incompetent vein ?Z98.890 - Other specified postprocedural states (ICD-10) Hx of breast reduction, elective ?Z98.890 - Other specified postprocedural states (ICD-10) Family History (Updated 05/13/24 @ 11:37 by Sly Gonzalez) Father Family history of cancer Varicose veins of bilateral lower extremities with pain Carotid arterial disease Other Family history not known due to adoption Family history of COPD (chronic obstructive pulmonary disease) Family history of myocardial infarction Social History (Updated 05/13/24 @ 11:34 by Sly Gonzalez) Within the past year, how often did you have a drink containing alcohol: monthly or less Smoking status: Never smoker Non-prescribed substance use: denies use Meds Home Medications and Allergies Home Medications ?Medication ?Instructions ?Recorded ?Confirmed ?Type atorvastatin 10 mg tablet (Lipitor) 10 mg PO DAILY 05/13/24 05/13/24 History fluvoxamine 100 mg mg PO 05/13/24 History capsule,extended release 24 hr Allergies Allergy/AdvReac Type Severity Reaction Status Date / Time No Known Drug Allergies Allergy Verified 05/13/24 12:22 Exam Narrative Exam Narrative: Armando Bearden MD personally performed the services described in this documentation, as scribed by Sly Gonzalez RN in my presence and it is both accurate and complete. Sly Bearden RN, am scribing for, and in the presence of, Dr. Armando Olivas and in the presence of the patient. Constitutional Documenting provider has reviewed patient's vital signs: yes Common normals: oriented x3 Nutritional appearance: overweight Cardio Peripheral pulses: dorsalis pedis pulses present Extremity Common normals: normal capillary refill Right lower extremity: lower leg Right lower leg: inspection and palpation Left lower extremity: lower leg Left lower leg: inspection and palpation Neuro Common normals: oriented x3 Assessment and Plan Assessment and Plan (1) Pain due to varicose veins of both lower extremities: Plan f/u evaluation with physician along with left leg limited u/s Armando Bearden MD personally performed the services described in this do cumentation, as scribed by Sly Gonzalez RN in my presence and it is both accurate and complete. Sly Bearden RN, am scribing for, and in the presence of, Dr. Armando Olivas and in the presence of the patient. Procedures Procedure Instructions Procedures Plan of care: Risks and benefits of the procedure were discussed at length and informed written consent was obtained.? Time-out completed for verification of correct patient, procedure and site.? Staff present during time-out: lSy Gonzalez RN,? Armando Olivas MD, Magdalena Mustafa [facility] Time Out Time_941 Patient prepped and procedure performed in usual sterile fashion. Risk of injury related to use of Diode laser and/or laser devices? __CR___ ? Serial number of laser used :? [id number] Control panel self test performed, electrical cords in good condition, floor is dry, basin of water available, fire extinguisher in close proximity_CR__ Polycarbonate goggles available and Laser warning signs outside of doors___CR__ Eye protection provided to patient and staff in room_CR___ Use of laser retardant drapes and dull blackened instruments as directed__CR___ Use of nonflammable prep solutions and use of saline soaked sponges to protect tissues as indicated _CR___ Length ___14 cm Laser operated by _Dr. Olivas Physician verbal confirmation laser locked in place__CR__ Laser start time (date and time) _08/29/2024@_0951 Laser stop time(date and time) __08/29/2024@_0953 Messer _8.0___ Average laser use __895____Joules Average laser use____112____seconds Pulse continuous ___CR_? Pulse intermittent ___ Amount of Tumescent used __150cc____ Evaluated patient for signs and symptoms of electrical injury __CR___ ? Skin clear at insertion site __CR___ Patient tolerated procedure well.? Left leg Coban dressing applied to access site.? Applied Left thigh high leg compression stocking. Will return on 09/05/2024 for Left leg limited venous ultrasound and exam. IArmando MD personally performed the services described in this documentation, as scribed by Sly Gonzalez RN in my presence and it is both accurate and complete. I, Sly Gonzalez RN, am scribing for, and in the presence of, Dr. Armando Olivas and in the presence of the patient.
--- NOTE | 2024-08-26 07:37 | P.DS_ITS ---
Discharge Plan Discharge Disposition: Home, Self-Care Outpatient Diagnostics: VC Facility EST LMTD (Routine) Timeframe: 2 Weeks Facility: [facility] - Location: Vein Center Ordered By: Armando Olivas VC EXT Venous LT Limited (Routine) Timeframe: 2 Weeks Facility: [facility] - Location: Vein Center Ordered By: Armando Olivas Follow Up Appointments: 09/05/2024 Plan of Treatment: f/u evaluation along with left leg limited u/s Patient Instructions: Endovenous Ablation (DC) Print Language: Trinidadian Discharge Date/Time: 08/29/24 09:41
[2024-08-29] MEDS: 0.9 % SODIUM CHLORIDE 500 ML, LIDOCAINE HCL 20 ML, SODIUM BICARBONATE 10 MEQ INJ (08:59)
[2024-08-29] MEDS: LIDOCAINE HCL 1% 100 MG/10 ML MDV INJ (08:59)
--- NOTE | 2024-08-29 09:01 | VEIN_ITS ---
[address] [address] Patient Name: SYED ESTEBAN MRN: [id number] date: 1960 Sex: F Assigned Patient Location: Current Patient Location: Accession/Order Number: [id number] Exam Date: 08/29/2024 09:04 Report Date: 08/29/2024 10:00 At the request of: RUBY GRIJALVA Procedure: VC Endovenous Ablation 1VeinLT EXAMINATION: VC Endovenous Ablation 1Vein left great saphenous vein HISTORY: I83.813 - Varicose veins of bilateral lower extremities w... COMPARISON: No relevant comparison available. TECHNIQUE: The risks and benefits of the procedure had been previously discussed, and were rediscussed at length. Informed written consent was obtained. Ara Foster and Sly Gonzalez assisted. Time out procedure was performed. The left lower extremity was prepared and draped in the usual sterile fashion to allow knee flexion in the sterile field. Duplex ultrasound probe was draped in a sterile cover, sterile transmission gel was used. Venous mapping was performed with the areas of dilation and large tributaries marked. The total length was 14 cm from the entry mid thigh to 3 cm below the saphenofemoral junction. The diameter of the greater saphenous vein ranged from 5-7 mm. A 30 gauge needle and 1% buffered lidocaine was used to anesthetize the entry site. A 4 mm incision was made with a scalpel and the saphenous vein was entered percutaneously under direct ultrasound guidance with a micropuncture set, a single stick was successful in gaining access. A micro-guide wire was inserted and the needle removed. A micro-set including a dilator was inserted over the microwire and the needle and dilator were removed. A 0.018 guide wire was inserted through the micro-set and threaded through the saphenous vein to the saphenofemoral junction. The dilator was removed and an introducer sheath was inserted over the wire until the end of the sheath entered the saphenofemoral junction. The dilator and wire were removed and the 600 micron fiber was introduced and placed and positioned so that it extended beyond the sheath and was 3 cm peripheral to the saphenofemoral femoral junction. Final position of the fiber was determined by ultrasound guidance and duplex imaging. Tumescent anesthetic was delivered by ultrasound guidance. 150 cc of fluid was delivered along the entire course of the saphenous vein. The solution consisted of 1000 cc of normal saline with 40 mL of 1% lidocaine and 20 mL of sodium bicarbonate. A final positioning check was made. The energy source was turned on by means of the foot pedal and the fiber and sheath were withdrawn. The total number of Joules delivered was 895. The laser was active for 112 seconds under continuous pulse, average laser use of 8 J. Laser start time 9:51 AM 08/29/2024 . Laser stop time 9:53 AM 08/29/2024 . A duplex ultrasound revealed compressibility and flow at the saphenofemoral junction immediately after the procedure. Hemostasis at the access site was achieved. The skin incision of the saphenous vein was closed with a 4 x 4. A compression stocking was applied. Postop instructions were given. A follow up appointment was recommended and scheduled. The patient tolerated the procedure well and was discharged in good condition . VEIN/VC Endovenous Ablation 1VeinLT IMPRESSION: Technically successful endovenous laser ablation of the left great saphenous vein Electronically authenticated by: RUBY GRIJALVA Date: 08/29/2024 10:00
[2024-08-29 09:08] VITALS: BP 120/58; PULSE 61; O2SAT 96
== END 2024-08-29 09:41 | disposition home or self-care (01) ==
LOC: VC 08:59
PROVIDERS: PCP Radiology Diagnostic Radiology; Visit Provider Radiology Diagnostic Radiology
DX: I83.813 Varicose veins of bilateral lower extremities with pain (principal)
CPT/HCPCS: 36478

== ENCOUNTER 2024-09-05 08:30 | Outpatient (OUT) | payer MEDICARE, SELFPAY ==
--- NOTE | 2024-09-05 08:32 | VEIN_ITS ---
Patient Name: SYED ESTEBAN MR#: [id number] : 1960 Exam Date: 09/05/2024 Ordering Doctor: DR ARMANDO GRIJALVA M.D. RADIOLOGY REPORT PROCEDURE: [facility] - OFFICE VISIT FOLLOW UP COMPARISON: [facility], 08/09/2024. PROGRESS NOTES: The patient reports no significant problems following intravenous laser ablation of the left great saphenous vein. The patient has worn her compression stocking and exercise. The patient did not require oral analgesics. Physical exam demonstrates the incision to be sealed. No bruising, erythema, warmth or ulceration. Review of the ultrasound performed the same day demonstrates occlusive thrombus extending throughout the treated left great saphenous vein with heat induced thrombus 1.3 cm from the saphenofemoral junction to the epigastric vein is patent. No deep vein thrombus. The patient expressed a desire to proceed with treatment of reticular and spider veins with injection sclerotherapy. VEIN/[facility] IMPRESSION: 1. Successful ablation of the left great saphenous vein. 2. Persistent bilateral reticular and spider veins. PLAN: Injection sclerotherapy Nurse notes, history and physical were reviewed and confirmed, see attached forms. The nurse was present throughout the physical exam and consultation Dictated by: Armando Grijalva MD on 09/05/2024 at 08:58 Approved by: Armando Grijalva MD on 09/05/2024 at 09:03
--- NOTE | 2024-09-05 08:32 | VEIN_ITS ---
Patient Name: SYED ESTEBAN MR#: [id number] : 1960 Exam Date: 09/05/2024 Ordering Doctor: DR ARMANDO GIRJALVA M.D. RADIOLOGY REPORT PROCEDURE: VC EXT VENOUS LT LIMITED COMPARISON: None. INDICATIONS: I80.02 - Phlebitis and thrombophlebitis of superficial veins left leg TECHNIQUE: Lower extremity herrera scale and Duplex Doppler evaluation of the deep venous system from the inguinal ligament through the calf veins. FINDINGS: REGION: Left lower extremity. THROMBI: Negative for DVT. Heat induced thrombus in left GSV 1.3 cm from SFJ and extends to mid thigh. COMPRESSIBILITY: Non-compressible segments corresponding to thrombus FLOW: Areas of no flow corresponding to thrombus CONCLUSION: Post ablation occlusion of the treated left great saphenous vein with heat induced thrombus 1.3 cm from the saphenofemoral junction. Dictated by: Armando Grijalva MD on 09/05/2024 at 08:49 Approved by: Armando Grijalva MD on 09/05/2024 at 08:50
[2024-09-05 08:56] VITALS: BMI 25.8
--- NOTE | 2024-09-05 08:56 | V.VEINS.HP ---
Vital Signs 09/05/24 08:56 Height 5 ft 6 in Weight 72.575 kg BMI 25.8 Varicose Veins Patient in today for follow up ultrasound of left lower extremity following EVLT of left GSV completed on 08/29/24. Armando Bearden MD personally performed the services described in this documentation, as scribed by Magdalena Mustafa RDMS in my presence and it is both accurate and complete. IMagdalena RDMS, am scribing for, and in the presence of, Dr. Armando Olivas and in the presence of the patient. aching and dull 3 10 years Worsened in recent months: Yes standing elevating extremities Reports limb pain (bilateral lower legs) History of lower extremity trauma: No Superficial thrombophlebitis: No Family history of varicose veins: yes (Patient's father) Has patient had previous lower extremity venous surgery: No Patient has previously received the following treatment(s) for lower extremity varicose veins: Reports sclerotherapy (2014 Dr. Palacios) Does patient have a history of : yes Does patient intend to have future pregnancies: no Has patient had lower extremity venous scan with relux testing: No Support hose used: Yes Problems walking or doing physical activity: No How does it affect you: often has to stop activity and rest and elevate legs/feet Do you walk much: Yes Do you stand much: Yes Review of Systems ROS Narrative Armando Bearden MD personally performed the services described in this documentation, as scribed by Magdalena Mustafa RDMS in my presence and it is both accurate and complete. IMagdalena RDMS, am scribing for, and in the presence of, Dr. Armando Olivas and in the presence of the patient. Neurological Reports: numbness in extremities and weakness in extremities [facility] Medical History (Updated 09/05/24 @ 09:02 by Magdalena Mustafa) Phlebitis and thrombophlebitis of superficial vessels of left lower extremity ?I80.02 - Phlebitis and thrombophlebitis of superficial vessels of left lower extremity (ICD-10) Hypercholesteremia ?E78.00 - Pure hypercholesterolemia, unspecified (ICD-10) Tonsil and adenoid disease, chronic ?J35.9 - Chronic disease of tonsils and adenoids, unspecified (ICD-10) Cataract ?H26.9 - Unspecified cataract (ICD-10) Pain due to varicose veins of both lower extremities ?I83.813 - Varicose veins of bilateral lower extremities with pain (ICD-10) Surgical History (Updated 08/29/24 @ 09:30 by Sly Gonzalez) Status post laser ablation of incompetent vein ?Z98.890 - Other specified postprocedural states (ICD-10) Hx of breast reduction, elective ?Z98.890 - Other specified postprocedural states (ICD-10) Family History (Updated 05/13/24 @ 11:37 by Sly Gonzalez) Father Family history of cancer Varicose veins of bilateral lower extremities with pain Carotid arterial disease Other Family history not known due to adoption Family history of COPD (chronic obstructive pulmonary disease) Family history of myocardial infarction Social History (Updated 05/13/24 @ 11:34 by Sly Gonzalez) Within the past year, how often did you have a drink containing alcohol: monthly or less Smoking status: Never smoker Non-prescribed substance use: denies use Meds Home Medications and Allergies Home Medications ?Medication ?Instructions ?Recorded ?Confirmed ?Type atorvastatin 10 mg tablet (Lipitor) 10 mg PO DAILY 05/13/24 05/13/24 History fluvoxamine 100 mg mg PO 05/13/24 History capsule,extended release 24 hr Allergies Allergy/AdvReac Type Severity Reaction Status Date / Time No Known Drug Allergies Allergy Verified 05/13/24 12:22 Exam Narrative Exam Narrative: Armando Bearden MD personally performed the services described in this documentation, as scribed by Magdalena Mustafa RDMS in my presence and it is both accurate and complete. Magdalena Bearden RDMS am scribing for, and in the presence of, Dr. Armando Olivas and in the presence of the patient. Results Imaging Venous US: Radiologist's impression: Heat induced thrombus in left GSV 1.3 cm from SFJ and extends to mid thigh. Armando Bearden MD personally performed the services described in this documentation, as scribed by Magdalena Mustafa RDMS in my presence and it is both accurate and complete. Magdalena Bearden RDMS am scribing for, and in the presence of, Dr. Armando Olivas and in the presence of the patient. Assessment and Plan Assessment and Plan (1) Phlebitis and thrombophlebitis of superficial vessels of left lower extremity: Plan Plan is for patient to return for sclerotherapy on 09/06/24. IArmando MD personally performed the services described in this documentation, as scribed by Magdalena Mustafa RDMS in my presence and it is both accurate and complete. I, Magdalena Mustafa RDMS, am scribing for, and in the presence of, Dr. Armando Olivas and in the presence of the patient.
--- NOTE | 2024-09-05 09:05 | W.VEIN ---
Discharge Plan Discharge Disposition: Home, Self-Care Discharge Medications: No Action atorvastatin [Lipitor] 10 mg tablet 10 mg PO DAILY fluvoxamine 100 mg capsule,extended release 24hr PO Outpatient Diagnostics: VC INJ Sclerosing SOLMULT Vein (Routine) Timeframe: 2 Weeks Facility: [facility] - Location: Vein Center Ordered By: Armando Olivas Follow Up Appointments: 09/06/24 Plan of Treatment: sclerotherapy Print Language: Malaysian Discharge Date/Time: 09/05/24 09:07
== END 2024-09-05 09:07 | disposition home or self-care (01) ==
LOC: VC 08:30
PROVIDERS: PCP Radiology Diagnostic Radiology; Visit Provider Radiology Diagnostic Radiology
DX: I80.02 Phlebitis and thrombophlebitis of superficial vessels of left lower extremity (principal)
CPT/HCPCS: 93971; G0463

== ENCOUNTER 2024-09-07 10:59 | Outpatient (OUT) | payer MEDICARE, SELFPAY ==
--- NOTE | 2024-09-05 15:04 | V.VEINS.HP ---
Varicose Veins Patient in today for sclerotherapy Armando Bearden MD personally performed the services described in this documentation, as scribed by Sly Gonzalez RN in my presence and it is both accurate and complete. I, Sly Gonzalez RN, am scribing for, and in the presence of, Dr. Armando Olivas and in the presence of the patient. aching and dull 3 10 years Worsened in recent months: Yes standing elevating extremities Reports limb pain (bilateral lower legs) History of lower extremity trauma: No Superficial thrombophlebitis: No Family history of varicose veins: yes (Patient's father) Has patient had previous lower extremity venous surgery: No Patient has previously received the following treatment(s) for lower extremity varicose veins: Reports sclerotherapy (2013 Dr. Palacios) Does patient have a history of : yes Does patient intend to have future pregnancies: no Has patient had lower extremity venous scan with relux testing: No Support hose used: Yes Problems walking or doing physical activity: No How does it affect you: often has to stop activity and rest and elevate legs/feet Do you walk much: Yes Do you stand much: Yes Review of Systems ROS Narrative Monisha, Armando Olivas MD personally performed the services described in this documentation, as scribed by Sly Gonzalez RN in my presence and it is both accurate and complete. I, Sly Gonzalez RN, am scribing for, and in the presence of, Dr. Armando Olivas and in the presence of the patient. Neurological Reports: numbness in extremities and weakness in extremities [facility] Medical History (Updated 09/05/24 @ 09:02 by Magdalena Mustafa) Phlebitis and thrombophlebitis of superficial vessels of left lower extremity ?I80.02 - Phlebitis and thrombophlebitis of superficial vessels of left lower extremity (ICD-10) Hypercholesteremia ?E78.00 - Pure hypercholesterolemia, unspecified (ICD-10) Tonsil and adenoid disease, chronic ?J35.9 - Chronic disease of tonsils and adenoids, unspecified (ICD-10) Cataract ?H26.9 - Unspecified cataract (ICD-10) Pain due to varicose veins of both lower extremities ?I83.813 - Varicose veins of bilateral lower extremities with pain (ICD-10) Surgical History (Updated 09/07/24 @ 11:52 by Sly Gonzalez) S/P sclerotherapy of varicose veins ?Z98.890 - Other specified postprocedural states (ICD-10) ?Z86.79 - Personal history of other diseases of the circulatory system (ICD-10) Status post laser ablation of incompetent vein ?Z98.890 - Other specified postprocedural states (ICD-10) Hx of breast reduction, elective ?Z98.890 - Other specified postprocedural states (ICD-10) Family History (Updated 05/13/24 @ 11:37 by Sly Gonzalez) Father Family history of cancer Varicose veins of bilateral lower extremities with pain Carotid arterial disease Other Family history not known due to adoption Family history of COPD (chronic obstructive pulmonary disease) Family history of myocardial infarction Social History (Updated 05/13/24 @ 11:34 by Sly Gonzalez) Within the past year, how often did you have a drink containing alcohol: monthly or less Smoking status: Never smoker Non-prescribed substance use: denies use Meds Home Medications and Allergies Home Medications ?Medication ?Instructions ?Recorded ?Confirmed ?Type atorvastatin 10 mg tablet (Lipitor) 10 mg PO DAILY 05/13/24 05/13/24 History fluvoxamine 100 mg mg PO 05/13/24 History capsule,extended release 24 hr Allergies Allergy/AdvReac Type Severity Reaction Status Date / Time No Known Drug Allergies Allergy Verified 05/13/24 12:22 Exam Narrative Exam Narrative: Armando Bearden MD personally performed the services described in this documentation, as scribed by Sly Gonzalez RN in my presence and it is both accurate and complete. Sly Bearden RN, am scribing for, and in the presence of, Dr. Armando Olivas and in the presence of the patient. Assessment and Plan Assessment and Plan (1) Pain due to varicose veins of both lower extremities: Plan additional sclerotherapy Armando Bearden MD personally performed the services described in this documentation, as scribed by Sly Gonzalez RN in my presence and it is both accurate and complete. Sly Bearden RN, am scribing for, and in the presence of, Dr. Armando Olivas and in the presence of the patient. Procedures Procedure Instructions Procedures sclerotherapy: Risks and benefits of the procedure were discussed at length and informed written consent was obtained.? Time-out procedure was performed and the correct patient and procedure were confirmed.? Staff present during time-out: Sly Gonzalez RN and Armando Olivas MD.? Patient prepped and procedure performed in usual sterile fashion. Injections performed by and Sly Gonzalez RN Sclerosing Agent:?? 4cc 0.5% Polidocanol Site Injected: left leg Number of Injections: 21 Anesthesia: Supercooled air The patient tolerated the procedure well without complication.? Hemostasis was obtained and thigh-high compression stocking was applied by patient.? Instructed patient to wear stocking for at least 96 hours and sleep with it and only remove for showering.? Will wear stocking for 2 weeks.? The patient verbalizes understanding and states they will comply.? Patient was given post-procedure instructions. Patient was discharged in good condition.? Scheduled to undergo additional injection sclerotherapy on 09/13/2024 IArmando MD personally performed the services described in this documentation, as scribed by Sly Gonzalez RN in my presence and it is both accurate and complete. ISly RN, am scribing for, and in the presence of, Dr. Armando Olivas and in the presence of the patient.
--- NOTE | 2024-09-05 15:09 | W.VEIN ---
Discharge Plan Discharge Disposition: Home, Self-Care Outpatient Diagnostics: VC INJ Sclerosing SOLMULT Vein (Routine) Timeframe: 2 Weeks Facility: [facility] - Location[facility] Ordered By: Armando Olivas Follow Up Appointments: 09/13/2024 Plan of Treatment: additional sclerotherapy Patient Instructions: Polidocanol (By injection) (Angelina Mcbride) Print Language: Amharic Discharge Date/Time: 09/07/24 12:42
--- NOTE | 2024-09-07 11:02 | VEIN_ITS ---
[address] [address] Patient Name: SYED ESTEBAN MRN: [id number] date: 1960 Sex: F Assigned Patient Location: Current Patient Location: Accession/Order Number: [id number] Exam Date: 09/07/2024 11:04 Report Date: 09/07/2024 12:01 At the request of: RUBY GRIJALVA Procedure: VC INJ Sclerosing SOLMULT Vein EXAMINATION: VC INJ Sclerosing SOLMULT Vein HISTORY: I83.813 - Varicose veins of bilateral lower extremities w... COMPARISON: No relevant comparison available. TECHNIQUE: The risks and benefits of the procedure were explained at length to the patient and informed written consent was obtained. Sly Gonzalez was present and assisted. The procedure was performed under sterile technique. The patient's leg was wrapped with Coban and postprocedural verbal and written instructions provided. SCLEROSANT: 4 cc, 0.5% polidocanol VEIN(S) INJECTED: 21 veins in the left leg VISUALIZATION: Ultrasound was not used to visualize the sclerosant ANESTHESIA: Supercooled air COMPLICATIONS: None VEIN/VC INJ Sclerosing SOLMULT Vein IMPRESSION: Technically successful sclerotherapy as described Electronically authenticated by: RUBY GRIJALVA Date: 09/07/2024 12:01
--- OUTSIDE RECORDS SUMMARY | 2024-09-07 11:19 | XMS_ITS | CCD ---
Author Organization [facility] Care Team Providers Care Civil Transportation Engineer Name Role Phone FLAQUITA RENAE Consulting Unavailable FLAQUITA RENAE Attending Unavailable EMMY GROVE Primary Care Unavailable FLAQUITA RENAE Admitting Unavailable NATHALIA LYNN Admitting Unavailable NATHALIA LYNN Consulting Unavailable NATHALIA LYNN Attending Unavailable Emmy Grove Unavailable [phone] Unavailable Unavailable Emmy Grove MD Primary Care Provider Saadia Deras NP Unavailable TASHI SIMS Admitting Unavailable TASHI SIMS Attending Unavailable EMMY GROVE Primary Care Unavailable FLIP CANSECO Attending Unavailable EMMY GROVE Primary Care Unavailable KETURAH FLORES Attending Unavailab KETURAH Eisenberg Referring [...] Velasquez Attending Unavailable EMMY GROVE Referring Unavailable Doc Cohen Attending Unavailab Doc Sheriff Admitting Unavailab Emmy Richey Primary Care Un available Emmy Grove MD Unavailable [phone] Allergies Allergy Classification Reported Allergen(s) Allergy Type Date of Onset Reaction(s) Facility (9 sources) Ciprofloxacin Drug Allergy 3 Nausea Only [facility] Work Phone: (9 sources) Sulfamethoxazole / Trimethoprim Drug Allergy 3 Nausea Only [facility] Medications Current Medications Medication Drug Class(es) Dates Sig (Normalized) Sig (Original) alendronic acid 70 mg oral tablet (2 sources) Bisphosphonate Start: 08-01-2024 End: 08-22-2025 take 1 tablet by mouth in the morning alendronate (Fosamax) 70 MG tablet Indications: Osteopenia, unspecified location Take 1 tablet (70 mg) by mouth every 7 (seven) days Take in the morning with a full glass of water, on an empty stomach, and do not take anything else by mouth or lie down for the next 30 min. 13 tablet 3 08/22/2024 08/22/2025 Active ALPRAZolam 0.5 mg oral tablet (1 source) Benzodiazepine Start: 07-14-2024 ALPRAZolam (Xanax) 0.5 MG tablet Indications: Anxiety Take 1 tablet (0.5 mg) by mouth as needed at bedtime for anxiety for up to 5 days 5 tablet 07/14/2024 Active aprepitant 40 mg oral capsule (1 source) Substance P/Neurokinin-1 Receptor Antagonist Start: 12-29-2023 take 1 capsule by mouth once daily aprepitant (Emend) 40 MG capsule TAKE 1 CAPSULE BY MOUTH DIRECTED TAKE THE DAY OF SURGERY 1-3HOURS PRIOR WITH A SMALL SIP OF WATER 12/29/2023 Active atorvastatin 10 mg oral tablet (9 sources) HMG-CoA Reductase Inhibitor Start: 07-21-2023 End: 06-24-2025 take 1 tablet by mouth once daily atorvastatin (Lipitor) 10 MG tablet Indications: Mixed hyperlipidemia (CMS/HCC) Take 1 tablet (10 mg) by mouth 1 (one) time each day at the same time 100 tablet 3 06/24/2024 06/24/2025 Active diclofenac sodium 0.01 mg/mg topical gel (1 source) Nonsteroidal Anti-inflammatory Drug Start: 08-02-2024 diclofenac sodium 1 % gel Indications: Acute pain of left knee APPLY TOPICALLY IN THE MORNING, EVENING, AND BEFORE BEDTIME 200 g 08/02/2024 Active fluvoxaMINE maleate 100 mg oral tablet (9 sources) Serotonin Reuptake Inhibitor Start: 07-01-2024 fluvoxaMINE (Luvox) 100 MG tablet Indications: Mixed obsessional thoughts and acts (CMS/HCC) TAKE 1 TABLET AT BREAKFAST,1 TABLET AT LUNCH AND 1 AND1/2 TABLET AT BEDTIME. 315 tablet 1 07/01/2024 Active Start: 07-16-2023 End: 07-15-2024 take 1 tablet by mouth once fluvoxaMINE (Luvox) 100 MG tablet Indications: Mixed obsessional thoughts and acts (CMS/HCC) Take 1 tablet (100 mg) by mouth every 12 (twelve) hours. Takes 150mg at night 180 tablet 3 07/16/2023 07/15/2024 Active magnesium oxide 500 mg oral capsule (9 sources) take 1 tablet by mouth once daily Magnesium 500 MG capsule Take 1 tablet by mouth 1 (one) time each day at the same time. Active melatonin 5 mg oral tablet (9 sources) melatonin 5 MG t ablet Take 5 mg by mouth as needed at bedtime for sleep. Active psyllium 3400 mg powder for oral suspension (1 source) psyllium (Metamu cil) 58.6 % packet Take 1 packet by mouth in the morning and 1 packet before bedtime. Mix and drink with at least 8 ounces of water or juice.. Active 72 hr scopolamine 0.0139 mg/hr transdermal system (1 source) Anticholinergic Start: 12-29-2023 scopolamine (Transderm-Scop) 1 mg/72 hr patch 72 hour patch APPLY 1 PATCH ON THE SKIN DIRECTED BEHIND THE EAR 1-3 HOURS PRIOR TO SURGERY AFTER SHOWER. 12/29/2023 Active Completed/Discontinued Medications Medication Drug Class(es) Dates [...] NEEDED. Quantity: 30 Refills: 0 Ordered: 01-Apr-2022 Mk HERNANDEZNSylvieTAVOAlejandra Start : 01-Apr-2022 Active mupirocin 0.02 mg/mg topical ointment (1 source) RNA Synthetase Inhibitor Antibacterial Start: 04-01-2022 Mupirocin 2 % External Ointment Apply twice daily to affected area for 7 days Quantity: 1 Refills: 0 Ordered: 01-Apr-2022 Mk HERNANDEZNAlejandra DONNELLY Start : 01-Apr-2022 Active Xeroform Petrolat Gauze 1 x8 External (1 source) Start: 04-01-2022 Xeroform Petrolat Gauze 1 x8 External Apply to wound now Quantity: 0 Refills: 0 Ordered: 01-Apr-2022 Mk HERNANDEZNAlejandra DONNELLY Start : 01-Apr-2022 Complete Problems Active Problems Problem Classification Problem Date Documented Da te Episodic/Chronic Acquired foot deformities (9 sources) Acquired hammer toe of left foot; Translations: [Other hammer toe(s) (acquired), left foot] Onset: 03-18-2023 03-18-2023 Chronic Acquired foot deformities (9 sources) Acquired hammer toe of right foot; Translations: [Other hammer toe(s) (acquired), right foot] Onset: 03-18-2023 03-18-2023 Chronic Adjustment disorders (9 sources) Adjustment disorder; Translations: [Adjustment disorder, unspecified] Onset: 02-26-2018 07-16-2023 Chronic Anxiety disorders (18 sources) Anxiety; Translations: [Anxiety disorder, unspecified] Onset: 03-18-2023 03-18-2023 Chronic Disorders of lipid metabolism (9 sources) Mixed hyperlipidemia; Translations: [Mixed hyperlipidemia] Onset: 03-18-2023 03-18-2023 Chronic Diverticulosis and diverticulitis (9 sources) Diverticulosis of large intestine; Translations: [Diverticulosis of large intestine without perforation or abscess without bleeding] Onset: 03-18-2023 03-18-2023 Chronic External cause codes: [...] wound of finger] Onset: 10-08-2019 Episodic Other bone disease and musculoskeletal deformities (1 source) Osteopenia; Translations: [Other specified disorders of bone density and structure, unspecified site] 08-22-2024 Episodic Other hereditary and degenerative nervous system conditions (9 sources) Restless legs; Translations: [Restless legs syndrome] Onset: 03-18-2023 03-18-2023 Chronic Other non-traumatic joint disorders (4 sources) Pain in left knee; Translations: [Pain in joint, lower leg] 11-30-2023 Episodic Other non-traumatic joint disorders (2 sources) Pain in elbow; Translations: [Pain in right elbow] 11-30-2023 Episodic Unclassified (9 sources) Patient on antidepressant monitoring plan Onset: 07-28-2023 07-28-2023 Unclassified (9 sources) Baseline PHQ-9 Onset: 07-28-2023 07-28-2023 Past or Other Problems Problem Classification Problem Date Documented Da te Episodic/Chronic Esophageal disorders (9 sources) Gastroesophageal reflux disease; Translations: [Gastro-esophageal reflux disease without esophagitis] Onset: 3 Resolved: 4 03-18-2023 Chronic Genitourinary symptoms and ill-defined conditions (9 sources) Dysuria; Translations: [Dysuria] Onset: 7 Resolved: 4 07-16-2023 Episodic Mood disorders (1 source) Mood disorders Onset: 4 07-05-2024 Other gastrointestinal disorders (9 sources) Slow transit constipation; Translations: [Slow transit constipation] Onset: 3 03-18-2023 Episodic Other nutritional; endocrine; and metabolic disorders (9 sources) Excessive eating - polyphagia; Translations: [Polyphagia] Onset: 0 07-16-2023 Episodic Viral infection (9 sources) Plantar wart of right foot; Translations: [Plantar wart] Onset: 7 07-16-2023 Episodic Results Test Name Value Interpretation [...] José Antonio Nicole M.D. Normal Not Available [id number] 01-14-2024 [id number] DATE OF VISIT: 01/14/2024 ANESTHESIA: General. PREOPERATIVE DIAGNOSIS: Macromastia. Recurrent. POSTOPERATIVE DIAGNOSIS: Macromastia. Recurrent. OPERATION PERFORMED: Bilateral inferior pedicle breast reduction. Secondary. SURGEON: Tashi Sism M.D. INDICATIONS: The patient is a 63-year-old [...] to the recovery room in satisfactory condition. CWC/MODL J#: [id number] Normal [facility] XR KNEE 4+ VIEWS LEFTon XR [...] VERY IMPORTANT TO YOUR HEALTH. THE CURRENT [employer] GUIDELINES RECOMMENDS ANNUAL MAMMOGRAPHY BEGINNING AT AGE 40 THIS FACILITY USES A REMINDER SYSTEM TO ENSURE ALL PATIENTS RECEIVE REMINDER NOTIFICATIONS AT THE APPROPRIATE TIME BASED ON THE RECOMMENDATIONS OF THIS EXAM. Report reported and signed by Kulwant Tomlin on 07/08/2022 1053 Normal [facility] Technology And Engineering Teacher Heart Rateon 04-01-2022 Adult depression screening assessment No [facility] Work Phone: Fall risk assessment a) No falls within the last year [facility] Work Phone: Heart Rate Regular [facility] Work Phone: Tobacco use status CPHS b) No [facility] Work Phone: Heart Rate Normal [facility] Work Phone: Heart Rate Large [facility] Work Phone: Office Visit (Urgent Care)on 04-01-2022 Follow-up visit Diagnoses/Problems Assessed Avulsion, finger tip (883.0) (S61.209A) Orders Avulsion, finger tip Start: Cephalexin 500 MG Oral Capsule; TAKE 1 CAPSULE EVERY 6 HOURS DAILY Rx By: Alejandra Terrazas; Dispense: 5 Days ; #:20 Capsule; Refill: 0;For: Avulsion, finger tip; FAVIOLA = N; Sent To: [address] Start: Mupirocin 2 % External Ointment; Apply twice daily to affected area for 7 days Rx By: Alejandra Terrazas; Dispense: 0 Days ; #:1 X 15 GM Tube; Refill: 0;For: Avulsion, finger tip; FAVIOLA = N; Sent To: [address] Administer: Xeroform Petrolat Gauze 1 x8 [...] ER. Chief Complaint laceration to finger cutting watermelon Adult Risk Screening Spiritual and Cultural: Patient [...] PM Vitals Vital Signs Recorded: 01Apr2022 12:15PM Yixcsucaxbz46.8 F, Temporal Heart Rate58 Pulse QualityRegular Kgjlzgxykji63 Respiration QualityNormal Zaxhgbyk452, RUE, Sitting Bsbuyyiyr53, RUE, Sitting Blood Pressure Cuff SizeLarge Height5 ft 6 in Kcppow535 lb BMI Pvtfzksott85.63 kg/m2 BSA Calculated1.84 Tobacco Useb) No PHQ-2 #1. Over the last 2 weeks have you felt down, depressed or hopeless? (If yes, answer PHQ-9 below)No PHQ-2 #2. Over the last 2 weeks have you felt little interest or pleasure in doing things? (If yes, answer PHQ-9 below)No Fall Screeninga) No falls within the last year O2 Dwdmmxxxex14, RA Pain Scale5 Physical Exam Constitutional: Well [...] tolerated well. Signatures Electronically signed by : ANNA Fitch; Apr 01 2022 1:02PM EST (Author) Normal [facility] COVID-19 PCRon 09-16-2020 SARS-CoV-2, HELENA Not Detected Normal Not Detected [facility] Comment on above: Result Comment: This nucleic acid amplification test was developed and its performance characteristics determined by [email or web address]. Nucleic acid amplification tests include PCR and [...] Performed By: #### C VDPCR, CVDSTAT #### [facility] [address], [place] [address] Caitlin Mehta PRIORITY COVID PROCESSINGon 09-16-2020 Comment Comment Normal [facility] Comment on above: Result Comment: Rece ived Performed By: #### C VDPCR, CVDSTAT #### [facility] [address], [place] [address] Caitlin Mehta Vital Signs Date Time Vital Sign Value Performing Clinician Facility 11-30-2023 08:37-0500 Body height 167.6 cm Keturah Membrenopatrick COMPUTER PROCESSING SCHEDULER Work Phone: [facility] 11-30-2023 08:37-0500 Body mass index (BMI) [Ratio] 26.41 kg/m2 Keturah Michaelzpatrick COMPUTER PROCESSING SCHEDULER Work Phone: [facility] 11-30-2023 08:37-0500 Body weight 74.21 kg Keturah Membrenopatrick COMPUTER PROCESSING SCHEDULER Work Phone: [facility] 11-30-2023 08:37-0500 Diastolic blood pressure 80 mm[Hg] Keturah Michaelzpatrick COMPUTER PROCESSING SCHEDULER Work Phone: [facility] 11-30-2023 08:37-0500 Heart rate 64 /min Keturah Membrenopatrick COMPUTER PROCESSING SCHEDULER Work Phone: [facility] 11-30-2023 08:37-0500 SaO2% (BldA) [Mass fraction] 96 % Keturah Michaelzpatrick COMPUTER PROCESSING SCHEDULER Work Phone: [facility] 11-30-2023 08:37-0500 Systolic blood pressure 126 mm[Hg] Keturah Michaelzpatrick COMPUTER PROCESSING SCHEDULER Work Phone: [facility] 04-01-2022 12:15-0400 Body height 167.64 cm Emmy Grove Work Phone: [facility] Work Phone: 04-01-2022 12:15-0400 Body mass index (BMI) [Ratio] 26.63 kg/m2 Emmy Grove Work Phone: [facility] Work Phone: 04-01-2022 12:15-0400 Body surface area Derived from formula 1.84 m2 Emmy Grove Work Phone: [facility] Work Phone: 04-01-2022 12:15-0400 Body temperature 97.8 [degF] Emmy Grove Work Phone: [facility] Work Phone: 04-01-2022 12:15-0400 Body weight 74.84 kg Emmy Grove Work Phone: [facility] Work Phone: 04-01-2022 12:15-0400 Diastolic blood pressure 66 mm[Hg] Emmy Grove Work Phone: [facility] Work Phone: 04-01-2022 12:15-0400 Heart rate 58 /min Emmy Grove Work Phone: [facility] Work Phone: 04-01-2022 12:15-0400 Respiratory rate 18 /min Emmy Grove Work Phone: [facility] Work Phone: 04-01-2022 12:15-0400 SaO2% (BldA) [Mass fraction] 98 % Emmy Grove Work Phone: [facility] Work Phone: 04-01-2022 12:15-0400 Systolic blood pressure 131 mm[Hg] Emmy Moreno Philip Work Phone: [facility] Work Phone: 04-01-2022 12:15-0400 5 1 Emmy Grove Work Phone: [facility] Work Phone: Comment on above: [employer] Encounters Encounter Date Encounter Type Care Provider Facility Start: 08-22-2024 End: 08-22-2024 Orders Only Emmy Grove MD Work Phone: [facility] Comment on above: Osteopenia, unspecif ied location Start: 08-12-2024 ambulatory Doc Pérez acility:[facility] Start: 07-25-2024 End: 07-25-2024 ambulatory EMMY GROVE Not Available Start: 07-05-2024 End: 07-05-2024 ambulatory EMMY GROVE Not Available Start: 01-14-2024 End: 01-14-2024 Evaluation and management of inpatient [facility] Start: 01-14-2024 End: 01-14-2024 Evaluation and management of inpatient [facility] Start: 12-28-2023 End: 12-28-2023 ambulatory KETURAH FLORES Not Available Start: 12-17-2023 End: 12-17-2023 ambulatory JOSE MOLINA Not Available Start: 12-11-2023 End: 12-11-2023 ambulatory GRISELDA CONTIY Not Available Start: 12-08-2023 Bamboo flowsheet Griselda Kelbley SOLAR PROJECT ENGINEER [facility] Start: 12-08-2023 Bamboo flowsheet Griselda Kelbley SOLAR PROJECT ENGINEER [facility] Start: 12-08-2023 End: 12-08-2023 ambulatory Griseldanickie Callesbley SOLAR PROJECT ENGINEER [facility] Comment on above: Acute pain of left k nee (Primary Dx) Start: 12-04-2023 Bamboo flowsheet Lisebt Mathias PT A [facility] Start: 12-04-2023 Bamboo flowsheet Lisbet Mathias PT A [facility] Start: 12-04-2023 End: 12-04-2023 ambulatory LISBET MATHIAS Not Available Start: 12-02-2023 Bamboo flowsheet Jose mark PT Work Phone: [facility] Start: 12-02-2023 Bamboo flowsheet Jose mark PT Work Phone: [facility] Start: 12-02-2023 End: 12-02-2023 ambulatory Jose Molina PT Work Phone: [facility] Comment on above: Acute pain of left k nee Start: 11-30-2023 Bamboo flowsheet Keturah A Fit zpatrick COMPUTER PROCESSING SCHEDULER Work Phone: [facility] Start: 11-30-2023 Bamboo flowsheet Keturah A Fit zpatrick COMPUTER PROCESSING SCHEDULER Work Phone: [facility] Start: 11-30-2023 End: 11-30-2023 Office outpatient visit 25 minutes Keturah Kellie Flores COMPUTER PROCESSING SCHEDULER Work Phone: [facility] Comment on above: Acute pain of left k nee (Primary Dx); Right elbow pain Start: 11-30-2023 End: 11-30-2023 ambulatory KETURAH FLORES Not Available Start: 09-14-2023 End: 09-14-2023 ambulatory DASH PYLE Not Available Start: 09-12-2023 End: 09-12-2023 ambulatory MARSHAMOI COOLEY Not Available Start: 04-01-2022 Current tobacco non-user cad cap copd pv dm Emmy Grove Work Phone: [facility] Work Phone: Start: 09-15-2020 End: 09-16-2020 Patient encounter procedure NATHALIA LYNN Facility:[facility] Start: 10-08-2019 End: 10-08-2019 Patient encounter procedure FLAQUITA RENAE Facility:[facility] Procedures Date Procedure Procedure Detail Performing Clinician Start: 07-25-2024 Mammography Emmy xiong MD Work Phone: Start: 07-05-2024 Microscopic observat ion [Identifier] in Cervix by Cyto stain Emmy Grove MD Work Phone: Start: 07-23-2023 Mammography Keturah Arnold leonidas COMPUTER PROCESSING SCHEDULER Work Phone: Start: 05-14-2017 Colonoscopy Keturah Fi leonidas COMPUTER PROCESSING SCHEDULER Work Phone: Plan of Treatment Date Care Activity Detail Author Start: 07-05-2027 Screening for malignant neoplasm of cervix [facility] Start: 05-14-2027 Screening for malignant neoplasm of colon [facility] Start: 07-04-2026 Screening for malignant neoplasm of cervix [facility] Start: 07-25-2025 Screening for malignant neoplasm of breast Mammogram [facility] Start: 07-11-2025 End: 07-11-2025 Patient encounter procedure 07/11/2025 10:00 AM EDT Office Visit [facility] [address] [facility] [phone] Emmy Grove MD [address] [place] [address] [facility] Start: 07-05-2025 Medicare Annual Wellness (AWV) Medicare Annual Wellness (AWV) [facility] Start: 07-23-2024 Screening for malignant neoplasm of breast Mammogram [facility] Start: 07-05-2024 End: 07-05-2024 Patient encounter procedure 07/05/2024 10:00 AM EDT Office Visit [facility] [address] [facility] [place] [phone] Emmy Grove MD [address] [place] [address] [facility] Start: 12-11-2023 End: 12-11-2023 ambulatory 12/11/2023 8:30 AM EST Treatment [facility] [address] [place] [id number] Griselda Wilkins PTA [facility] Start: 12-08-2023 End: 12-08-2023 ambulatory 12/08/2023 1:30 PM EST Treatment [facility] [address] [place] [address] Lisbet Mathias, SRIDEVI [facility] Start: 12-08-2023 End: 12-08-2023 ambulatory 12/08/2023 8:30 AM EST Treatment [facility] [address] [place] [address] Griselda Wilkins, SRIDEVI Arrived [facility] Comment on above: Arrived Start: 12-04-2023 End: 12-04-2023 ambulatory [facility] Comment on above: Acute pain of left k nee (Primary Dx); Acute pain of right shoulder Start: 11-30-2023 End: 11-30-2024 XR Knee - left 4 Views XR knee 4+ views left Imaging Routine Acute pain of left knee Expected: 11/30/2023, Expires: 11/30/2024 [facility] Work Phone: Comment on above: Expected: 11/30/2023 , Expires: 11/30/2024 Start: 11-30-2023 End: 11-30-2023 Patient encounter procedure 11/30/2023 8:30 AM EST Office Visit [facility] [address] [place] [phone] Keturah Flores NP [address] [place] [address] Arrived [facility] Comment on above: Arrived Start: 1980 Screening for malignant neoplasm of cervix Pap Smear [facility] Start: 1960 Screening for malignant neoplasm of colon [facility] Immunizations Immunization Date Immunization Notes Care Provider Fa cility 07-15-2024 SARS-COV-2 (COVID-19 ) vaccine, mRNA, spike protein, LNP, PF, brittani-sucrose, 30 mcg/0.3 mL Emmy Grove MD Work Phone: [facility] 07-05-2024 Influenza, High-dose Seasonal, Quadrivalent, Preservative Free Emmy Grove MD Work Phone: [facility] 07-05-2024 Pneumococcal Conjuga te PCV 20 Emmy Grove MD Work Phone: [facility] 07-17-2023 influenza, injectabl e, quadrivalent, preservative free Keturah Michaelzpatrick COMPUTER PROCESSING SCHEDULER Work Phone: [facility] 08-08-2022 Moderna Bivalent Booster Vaccination Keturahchung FaustinFlores COMPUTER PROCESSING SCHEDULER Work Phone: [facility] 08-08-2022 SARS-COV-2 (COVID-19 ) vaccine, mRNA, spike protein, LNP, bivalent, preservative free, 30 mcg/0.3 mL dose, brittani-sucrose formulation Keturah Flores COMPUTER PROCESSING SCHEDULER Work Phone: [facility] 07-08-2022 influenza, injectabl e, quadrivalent, preservative free Keturah Flores COMPUTER PROCESSING SCHEDULER Work Phone: [facility] 07-24-2021 influenza, injectabl e, quadrivalent, preservative free Keturah Flores COMPUTER PROCESSING SCHEDULER Work Phone: [facility] 07-16-2020 influenza, injectabl e, quadrivalent, preservative free Keturah Flores COMPUTER PROCESSING SCHEDULER Work Phone: [facility] 10-08-2019 tetanus toxoid, redu valentino diphtheria toxoid, and acellular pertussis vaccine, adsorbed Keturah Flores COMPUTER PROCESSING SCHEDULER Work Phone: [facility] 08-24-2019 influenza, injectabl e, quadrivalent, contains preservative Keturah Flores COMPUTER PROCESSING SCHEDULER Work Phone: [facility] 04-13-2019 zoster vaccine recombinant Keturah Flores COMPUTER PROCESSING SCHEDULER Work Phone: [facility] 01-24-2019 zoster vaccine recombinant Keturah Flores COMPUTER PROCESSING SCHEDULER Work Phone: [facility] 08-11-2018 influenza, injectabl e, quadrivalent, contains preservative Keturah Flores COMPUTER PROCESSING SCHEDULER Work Phone: [facility] 08-17-2017 influenza, injectabl e, quadrivalent, preservative free Keturah Flores COMPUTER PROCESSING SCHEDULER Work Phone: [facility] 08-11-2016 influenza, injectabl e, quadrivalent, preservative free Keturah Flores COMPUTER PROCESSING SCHEDULER Work Phone: [facility] 08-20-2015 influenza, seasonal, injectable, preservative free Keturah Flores COMPUTER PROCESSING SCHEDULER Work Phone: [facility] 07-06-2015 zoster vaccine, live Keturah Flores COMPUTER PROCESSING SCHEDULER Work Phone: [facility] 08-11-2014 influenza, seasonal, injectable, preservative free Keturah Flores COMPUTER PROCESSING SCHEDULER Work Phone: [facility] 06-09-2013 zoster vaccine, live Keturah Flores COMPUTER PROCESSING SCHEDULER Work Phone: [facility] 05-20-2011 tetanus and diphther ia toxoids, adsorbed, preservative free, for adult use (5 Lf of tetanus toxoid and 2 Lf of diphtheria toxoid) Keturah Flores COMPUTER PROCESSING SCHEDULER Work Phone: [facility] 05-20-2011 tetanus toxoid, redu valentino diphtheria toxoid, and acellular pertussis vaccine, adsorbed Keturah Flores COMPUTER PROCESSING SCHEDULER Work Phone: [facility] 10-23-2009 novel [id number], preservative-free, injectable Keturah Flores COMPUTER PROCESSING SCHEDULER Work Phone: [facility] Payers Date Payer Category Payer Self-pay 2024 Medicaid [employer] MED[employer]ARE A DVANTAGE [id number] 2024 Medicare [id number] 2023 Managed Care HMO (unspecified) ONUR MOHR [id number] 2023-Present [address] [place] [address] HMO [id number] 2023 Private Health Insurance [id number] 1959 Unknown [id number] 1959 Unknown [id number] [id number]. 593 1959 Unknown [id number] 2.16.840.1.007581.3.579.2. 593 1959 Unknown [id number] 2.16.840.1.562832.3.579.2. 1286 1959 Unknown [id number] 2.16.840.1.872011.3.579.2. 1259 1959 Unknown [id number] 2.16.840.1.068294.3.579.2. 1259 1959 Unknown [id number] 2.16.840.1.172426.3.579.2. 1259 1959 Unknown [id number] 2.16.840.1.604138.3.579.2. 1259 1959 Unknown [id number] 2.16.840.1.828833.3.579.2. 1259 1959 Unknown [id number] 2.16.840.1.194336.3.579.2. 1259 1959 Unknown [id number] 2.16.840.1.457218.3.579.2. 1259 1959 Unknown [id number] 2.16.840.1.156843.3.579.2. 1259 1959 Unknown [id number] 2.16.840.1.065418.3.579.2. 1259 1960 Unknown [id number] 1960 Unknown [id number] 1960 Unknown [id number] 1960 Unknown [id number] Unknown [facility] Unknown [id number] Social History Date Type Detail Facility Start: 03-19-2023 Tobacco smoking status NCIS Never smoked tobacco [facility] Work Phone: Start: 03-19-2023 Tobacco use and exposure Smokeless tobacco non-user [facility] Start: 09-12-2023 End: 07-05-2024 Alcohol intake Current drinker of alcohol (finding) [facility] Start: 07-16-2023 End: 07-05-2024 History of Social function [facility] Start: 07-16-2023 End: 07-05-2024 Humiliation, Afraid, Rape, and Kick questionnaire [HARK] [facility] Within the last year , have you been afraid of your partner or ex-partner? No [facility] Do you belong to any clubs or organizations such as shinto groups, unions, fraternal or athletic groups, or [...] - these days [OSQ] Not at all [facility] (I/We) worried wheth er (my/our) food would run out before (I/we) got money to buy more. Never true [facility] Start: 07-16-2023 Alcohol Comment 1-0 drinks a week [facility] Start: 1960 Sex Assigned At Female [facility] Start: 03-19-2023 Gender identity Identifies as female gender (finding) [facility] Start: 03-19-2023 Sexual orientation Heterosexual (finding) [facility] Goals Date Patient Goal Desired Activity [...] it gets painful. documented in this encounter [facility] Evaluation note Note Date & Type Note Facility Evaluation note Diagnosis Acute pain of left knee- Primary Right elbow pain Pain in joint, upper arm documented in this encounter [facility] Evaluation note Note Date & Type Note Facility Evaluation note Diagnosis Acute pain of left knee documented in this encounter [facility] Evaluation note Note Date & Type Note Facility Evaluation note Diagnosis Acute pain of left knee- Primary documented in this encounter [facility] Evaluation note Note Date & Type Note Facility Evaluation note Diagnosis Swelling of joint, knee, left- Primary Right foot pain Pain in soft tissues of limb Mixed obsessional thoughts and acts (CMS/HCC) Mixed hyperlipidemia (CMS/HCC)- Primary Mixed hyperlipidemia Encounter for immunization Wellness examination Mixed obsessional thoughts and acts (CMS/HCC) Wellness examination- Primary Diverticulosis large intestine w/o perforation or abscess w/o bleeding Mixed hyperlipidemia (CMS/HCC) Mixed hyperlipidemia Menopause Symptomatic menopausal or female climacteric states Encounter for immunization Well woman exam Routine general medical examination at a health care facility Mixed obsessional thoughts and acts (CMS/HCC) Right lateral epicondylitis Osteopenia, unspecified location documented in this encounter [facility] History of Present illness Narrative Note Date & Type Note Facility History of Present illness Narrative Triage note, vital signs, past medical history and allergies [id number] female with complaints of a laceration to [...] denies any significant past medical problems. [facility] Work Phone: Summary Purpose Family History No [...] and content) DATE CREATED AUTHOR 09/20/2020 [facility] DATE CREATED AUTHOR AUTHOR'S ORGANIZ ATION 04/02/2022 [employer] DATE CREATED AUTHOR AUTHOR'S ORGANIZ ATION 07/08/2022 [facility] dical Specialist DATE CREATED AUTHOR AUTHOR'S ORGANIZ ATION 01/15/2024 [facility] DATE CREATED AUTHOR AUTHOR'S ORGANIZ ATION 07/30/2024 [facility] d[facility] Specialists EPIC DATE CREATED AUTHOR AUTHOR'S ORGANIZ ATION 08/21/2024 [facility] Care Teams (unrecognized sec tion and content) Civil Transportation Engineer Relationship Specialty Start Date End Date Emmy Grove MD [address] [place] [address] PCP - General Family Medicine 03/19/23 Saadia Deras NP [address] [place] [address] PCP - Medical [employer] 03/26/23 Civil Transportation Engineer Relationship Specialty Start Date End Date Emmy Grove MD [address] [place] [address] PCP - General Family Medicine 03/19/23 Saadia Deras NP [address] [place] [address] PCP - Medical [employer] 03/26/23 Civil Transportation Engineer Relationship Specialty Start Date End Date Emmy Grove MD [address] [place] [address] PCP - General Family Medicine 03/19/23 Saadia Deras NP [address] [place] [address] PCP - Medical [employer] 03/26/23 Civil Transportation Engineer Relationship Specialty Start Date End Date Emmy Grove MD [address] [place] [address] PCP - General Family Medicine 03/19/23 Saadia Deras NP [address] [place] [address] PCP - Medical [employer] 03/26/23 Civil Transportation Engineer Relationship Specialty Start Date End Date Emmy Grove MD [address] [place] [address] PCP - General Family Medicine 03/19/23 Saadia Deras NP [address] [place] [address] PCP - Medical [employer] 03/26/23 Civil Transportation Engineer Relationship Specialty Start Date End Date Emmy Grove MD [address] [place] [address] PCP - General Family Medicine 03/19/23 Saadia Deras NP [address] [place] [address] PCP - Medical [employer] 03/26/23 Civil Transportation Engineer Relationship Specialty Start Date End Date Emmy Grove MD [address] [place] [address] PCP - General Family Medicine 03/19/23 Saadia Deras NP [address] [place] [address] PCP - Medical [employer] 03/26/23 Civil Transportation Engineer Relationship Specialty Start Date End Date Emmy Grove MD [address] [place] [address] PCP - General Family Medicine 03/19/23 Emmy Grove MD [address] [place] [address] PCP - [employer] 03/26/24 Reason for Visit (unrecogniz ed section and content) Reason Comments Knee Pain Specialty Diagnoses / Procedures Referred By Imer motta Referred To Contact Physical Therapy Diagnoses Acute pain of left knee Procedures [place] OFFICE/OUTPATIENT NEW HIGH MDM 60 MINUTES Keturah Flores NP [address] [place] [address] Jose Molina, PT [address] [address] Referral ID Status Reason Start Date Expiration Date Visits Requested Visits Authorized [id number] Authorized Specialty Services Required 12/01/2023 05/29/2024 99 [...] BE BASED ON THE PRIMARY CLINICAL RECORDS. [facility]. provides no warranty or guarantee of the accuracy or completeness of information in this document.
== END 2024-09-07 12:42 | disposition home or self-care (01) ==
LOC: VC 11:00
PROVIDERS: PCP Radiology Diagnostic Radiology; Visit Provider Radiology Diagnostic Radiology
DX: I83.813 Varicose veins of bilateral lower extremities with pain (principal)
CPT/HCPCS: 36471

== ENCOUNTER 2024-09-12 08:26 | Outpatient (OUT) | payer MEDICARE, SELFPAY ==
--- NOTE | 2024-09-12 07:26 | V.VEINS.HP ---
Vital Signs 09/12/24 08:35 BP 130/72 BP Location Right Brachial BP Position Sitting BP Cuff Size Adult BP Source Manual Cuff Respiration 16 Pulse 65 Pulse Source Monitor Pulse Oximetry (%) 96 Oxygen Delivery Method Room Air Comment The patient's blood pressure is elevated. Varicose Veins Patient in today for sclerotherapy Willy Bearden MD personally performed the services described in this documentation, as scribed by Sly Gonzalez RN in my presence and it is both accurate and complete. ISly RN, am scribing for, and in the presence of, Dr. Willy Flores and in the presence of the patient. aching and dull 3 10 years Worsened in recent months: Yes standing elevating extremities Reports limb pain (bilateral lower legs) History of lower extremity trauma: No Superficial thrombophlebitis: No Family history of varicose veins: yes (Patient's father) Has patient had previous lower extremity venous surgery: No Patient has previously received the following treatment(s) for lower extremity varicose veins: Reports sclerotherapy (2013 Dr. Palacios) Does patient have a history of : yes Does patient intend to have future pregnancies: no Has patient had lower extremity venous scan with relux testing: No Support hose used: Yes Problems walking or doing physical activity: No How does it affect you: often has to stop activity and rest and elevate legs/feet Do you walk much: Yes Do you stand much: Yes Review of Systems ROS Narrative Willy Bearden MD personally performed the services described in this documentation, as scribed by Sly Gonzalez RN in my presence and it is both accurate and complete. ISly RN, am scribing for, and in the presence of, Dr. Willy Flores and in the presence of the patient. Neurological Reports: numbness in extremities and weakness in extremities [facility] Medical History (Updated 09/05/24 @ 09:02 by Magdalena Mustafa) Phlebitis and thrombophlebitis of superficial vessels of left lower extremity ?I80.02 - Phlebitis and thrombophlebitis of superficial vessels of left lower extremity (ICD-10) Hypercholesteremia ?E78.00 - Pure hypercholesterolemia, unspecified (ICD-10) Tonsil and adenoid disease, chronic ?J35.9 - Chronic disease of tonsils and adenoids, unspecified (ICD-10) Cataract ?H26.9 - Unspecified cataract (ICD-10) Pain due to varicose veins of both lower extremities ?I83.813 - Varicose veins of bilateral lower extremities with pain (ICD-10) Surgical History (Updated 09/07/24 @ 11:52 by Sly Gonzalez) S/P sclerotherapy of varicose veins ?Z98.890 - Other specified postprocedural states (ICD-10) ?Z86.79 - Personal history of other diseases of the circulatory system (ICD-10) Status post laser ablation of incompetent vein ?Z98.890 - Other specified postprocedural states (ICD-10) Hx of breast reduction, elective ?Z98.890 - Other specified postprocedural states (ICD-10) Family History (Updated 05/13/24 @ 11:37 by Sly Gonzalez) Father Family history of cancer Varicose veins of bilateral lower extremities with pain Carotid arterial disease Other Family history not known due to adoption Family history of COPD (chronic obstructive pulmonary disease) Family history of myocardial infarction Social History (Updated 05/13/24 @ 11:34 by Sly Gonzalez) Within the past year, how often did you have a drink containing alcohol: monthly or less Smoking status: Never smoker Non-prescribed substance use: denies use Meds Home Medications and Allergies Home Medications ?Medication ?Instructions ?Recorded ?Confirmed ?Type atorvastatin 10 mg tablet (Lipitor) 10 mg PO DAILY 05/13/24 05/13/24 History fluvoxamine 100 mg mg PO 05/13/24 History capsule,extended release 24 hr Allergies Allergy/AdvReac Type Severity Reaction Status Date / Time No Known Drug Allergies Allergy Verified 05/13/24 12:22 Exam Narrative Exam Narrative: Willy Bearden MD personally performed the services described in this documentation, as scribed by Sly Gonzalez RN in my presence and it is both accurate and complete. ISly RN, am scribing for, and in the presence of, Dr. Willy Flores and in the presence of the patient. Assessment and Plan Assessment and Plan (1) Pain due to varicose veins of both lower extremities: Plan Additional sclerotherapy Willy Bearden MD personally performed the services described in this documentation, as scribed by Sly Gonzalez RN in my presence and it is both accurate and complete. ISly RN, am scribing for, and in the presence of, Dr. Willy Flores and in the presence of the patient. Procedures Procedure Instructions Procedures sclerotherapy: Risks and benefits of the procedure were discussed at length and informed written consent was obtained.? Time-out procedure was performed and the correct patient and procedure were confirmed.? Staff present during time-out: Sly Gonzalez RN and Willy Flores MD.? Patient prepped and procedure performed in usual sterile fashion. Injections performed by Dr. Flores and Sly Gonzalez RN Sclerosing Agent:?? 4cc 0.5% Polidocanol Site Injected: Right leg Number of Injections: 27 Anesthesia: Supercooled air The patient tolerated the procedure well without complication.? Hemostasis was obtained and thigh-high compression stocking was applied by patient.? Instructed patient to wear stocking for at least 96 hours and sleep with it and only remove for showering.? Will wear stocking for 2 weeks.? The patient verbalizes understanding and states they will comply.? Patient was given post-procedure instructions. Patient was discharged in good condition.? Scheduled to undergo additional injection sclerotherapy on 07/20/2024 Willy Bearden MD personally performed the services described in this documentation, as scribed by Sly Gonzalez RN in my presence and it is both accurate and complete. Sly Bearden RN, am scribing for, and in the presence of, Dr. Willy Flores and in the presence of the patient.
--- NOTE | 2024-09-12 07:29 | P.DS_ITS ---
Discharge Plan Discharge Disposition: Home, Self-Care Outpatient Diagnostics: VC INJ Sclerosing SOLMULT Vein (Routine) Timeframe: 2 Weeks Facility: [facility] - Location: [facility] Ordered By: Willy Flores Follow Up Appointments: 09/19/2024 Plan of Treatment: Additional sclerotherapy Patient Instructions: Polidocanol (By injection) (Asclera, Varithena) Print Language: Romanian Discharge Date/Time: 09/12/24 08:27
--- NOTE | 2024-09-12 08:33 | VEIN_ITS ---
[address] [address] Patient Name: SYED ESTEBAN MRN: [id number] date: 1960 Sex: F Assigned Patient Location: Current Patient Location: Accession/Order Number: [id number] Exam Date: 09/12/2024 08:33 Report Date: 09/12/2024 15:36 At the request of: TALI GROSS Procedure: VC INJ Sclerosing SOLMULT Vein EXAMINATION: VC INJ Sclerosing SOLMULT Vein HISTORY: I83.813 - Varicose veins of bilateral lower extremities w... The risks and benefits of the procedure were explained at length to the patient and informed written consent was obtained. The procedure was performed under sterile technique. The patient's leg was wrapped with Coban and postprocedural verbal and written instructions provided. Sly Gonzalez RN was present and assisted. SCLEROSANT: 2mL 0.5% Polidocanol. VEIN(S) INJECTED: 27 veins in the right leg. VISUALIZATION: Ultrasound was not used to visualize the sclerosant. ANESTHESIA: Supercooled air. COMPLICATIONS: None. Electronically authenticated by: TALI GROSS Date: 09/12/2024 15:36
[2024-09-12 08:35] VITALS: BP 130/72; PULSE 65; O2SAT 96
--- OUTSIDE RECORDS SUMMARY | 2024-09-12 08:39 | XMS_ITS | CCD ---
Author Organization [facility] CliniSypr Care Team Providers Care Manufacturing Baker Name Role Phone FLAQUITA RENAE Consulting Unavailable FLAQUITA RENAE Attending Unavailable EMMY GROVE Primary Care Unavailable FLAQUITA RENAE Admitting Unavailable NATHALIA LYNN Admitting Unavailable NATHALIA LYNN Consulting Unavailable NATHALIA LYNN Attending Unavailable Emmy Grove Unavailable [phone] Unavailable Unavailable Emmy Grove MD Primary [...] Velasquez Attending Unavailable EMMY GROVE Referring Unavailable Emmy Grove MD Unavailable [phone] Doc Cohen Attending Unavailab Doc Sheriff Admitting Unavailab Emmy Richey Primary Care Un available Allergies Allergy Classification Reported Allergen(s) Allergy Type [...] Quantity: 30 Refills: 0 Ordered: 01-Apr-2022 Mk ANNAAlejandra Start : 01-Apr-2022 Active mupirocin 0.02 mg/mg topical ointment (1 source) RNA Synthetase Inhibitor Antibacterial Start: 04-01-2022 Mupirocin 2 % External Ointment Apply twice daily to affected area for 7 days Quantity: 1 Refills: 0 Ordered: 01-Apr-2022 Mk ALIXSylvieTAVOAlejanrda Start : 01-Apr-2022 Active Xeroform Petrolat Gauze 1 x8 External (1 source) Start: 04-01-2022 Xeroform Petrolat Gauze 1 x8 External Apply to wound now Quantity: 0 Refills: 0 Ordered: 01-Apr-2022 Mk HERNANDEZNSylvieFOOD CHECKERS AND CASHIERS SUPERVISORAlejandra Start : 01-Apr-2022 Complete Problems Active Problems [...] José Antonio Nicole M.D. Normal Not Available [id number] 01-14-2024 [id number] DATE OF VISIT: 01/14/2024 ANESTHESIA: General. PREOPERATIVE [...] recovery room in satisfactory condition. CWC/MODL J#: [id number] Normal [facility] XR KNEE 4+ VIEWS LEFTon XR [...] VERY IMPORTANT TO YOUR HEALTH. THE CURRENT [employer] GUIDELINES RECOMMENDS ANNUAL MAMMOGRAPHY BEGINNING AT AGE 39 THIS FACILITY USES A REMINDER SYSTEM TO ENSURE ALL PATIENTS RECEIVE REMINDER NOTIFICATIONS AT THE APPROPRIATE TIME BASED ON THE RECOMMENDATIONS OF THIS EXAM. Report reported and signed by Kulwant Tomlin on 07/08/2022 1053 Normal [facility] Presales Engineer Heart Rateon 04-01-2022 Adult depression screening assessment No [facility] Work Phone: Fall risk assessment a) No falls within the last year [facility] Work Phone: Heart Rate Regular [facility] Work Phone: Tobacco use status [facility] b) No [facility] Work Phone: Heart Rate Normal [facility] [...] finger tip; FAVIOLA = N; Sent To: [facility] Start: Mupirocin 2 % External Ointment; Apply twice daily to affected area for 7 days Rx By: Alejandra Terrazas; Dispense: 0 Days ; #:1 X 15 GM Tube; Refill: 0;For: Avulsion, finger tip; FAVIOLA = N; Sent To: [facility] Administer: Xeroform Petrolat Gauze 1 x8 [...] PM Vitals Vital Signs Recorded: 01Apr2022 12:15PM Mikvzepndhb51.8 F, Temporal Heart Rate58 Pulse QualityRegular Cohopszuksi91 Respiration QualityNormal Iyccglmb614, RUE, Sitting Cmsqgvnfw29, RUE, Sitting Blood Pressure Cuff SizeLarge Height5 ft 6 in Btfudy008 lb BMI Klkvnpyegl59.63 kg/m2 BSA Calculated1.84 Tobacco Useb) No PHQ-2 #1. Over the last 2 weeks have you felt down, depressed or hopeless? (If yes, answer PHQ-9 below)No PHQ-2 #2. Over the last 2 weeks have you felt little interest or pleasure in doing things? (If yes, answer PHQ-9 below)No Fall Screeninga) No falls within the last year O2 Pbqdudlnbx07, RA Pain Scale5 Physical Exam Constitutional: Well [...] Apr 01 2022 1:02PM EST (Author) Normal [facility] COVID-19 PCRon 09-16-2020 SARS-CoV-2, HELENA Not Detected Normal Not Detected [facility] Comment on above: Result Comment: This nucleic acid amplification test was developed and its performance characteristics determined by [email or web address]. Nucleic acid amplification tests include PCR and [...] Performed By: #### C VDPCR, CVDSTAT #### [facility] [address], [place] [address] Caitlin Mehta PRIORITY COVID PROCESSINGon 09-16-[address] Comment [address] Normal [facility] Comment on above: Result Comment: Rece ived Performed By: #### C VDPCR, CVDSTAT #### [facility] [address] [place], [place] [address] Caitlin Mehta Vital Signs Date Time Vital Sign Value Performing Clinician Facility 11-30-2023 08:37-0500 Body height 167.6 cm Keturah Membrenopatrick DOWEL MAKER Work Phone: [facility] 11-30-2023 08:37-0500 Body mass index (BMI) [Ratio] 26.41 kg/m2 Ketruah Membrenopatrick DOWEL MAKER Work Phone: [facility] 11-30-2023 08:37-0500 Body weight 74.21 kg Keturah Membrenopatrick DOWEL MAKER Work Phone: [facility] 11-30-2023 08:37-0500 Diastolic blood pressure 80 mm[Hg] Keturah Michaelzpatrick DOWEL MAKER Work Phone: [facility] 11-30-2023 08:37-0500 Heart rate 64 /min Keturah Membrenopatrick DOWEL MAKER Work Phone: [facility] 11-30-2023 08:37-0500 SaO2% (BldA) [Mass fraction] 96 % Keturah Membrenopatrick DOWEL MAKER Work Phone: [facility] 11-30-2023 08:37-0500 Systolic blood pressure 126 mm[Hg] Keturah Membrenopatrick DOWEL MAKER Work Phone: [facility] 04-01-2022 12:15-0400 Body height 167.64 cm Emmy Grove Work Phone: [facility] Work Phone: 04-01-2022 12:15-0400 Body mass index (BMI) [Ratio] 26.63 kg/m2 Emmy Grove Work Phone: [facility] Work Phone: 04-01-2022 12:15-0400 Body surface area Derived from formula 1.84 m2 Emmy Josh Grove Work Phone: [facility] Work Phone: 04-01-2022 12:15-0400 Body temperature 97.8 [degF] Emmy Grove Work Phone: [facility] Work Phone: 04-01-2022 12:15-0400 Body weight 74.84 kg Emmy Grove Work Phone: [facility] Work Phone: 04-01-2022 12:15-0400 Diastolic blood pressure 66 mm[Hg] Emmy Grove Work Phone: [facility] Work Phone: 04-01-2022 12:15-0400 Heart rate 58 /min Emmy Grove Work Phone: [facility] Work Phone: 04-01-2022 12:15-0400 Respiratory rate 18 /min Emmy Grove Work Phone: [facility] Work Phone: 04-01-2022 12:15-0400 SaO2% (BldA) [Mass fraction] 98 % Emmy Grove Work Phone: [facility] Work Phone: 04-01-2022 12:15-0400 Systolic blood pressure 131 mm[Hg] Emmy Grove Work Phone: [facility] Work Phone: 04-01-2022 12:15-0400 5 1 Emmy Grove Work Phone: [facility] Work Phone: Comment on above: PainScale Encounters Encounter Date Encounter Type Care Provider Facility Start: 09-09-2024 ambulatory Doc Pérez acility:[facility] Start: 08-22-2024 End: 08-22-2024 Orders Only Emmy Grove MD Work Phone: [facility] Comment on above: Osteopenia, unspecif ied location Start: 07-25-2024 End: 07-25-2024 ambulatory EMMY GROVE Not Available Start: 07-05-2024 End: 07-05-2024 ambulatory EMMY GROVE Not Available Start: 01-14-2024 End: 01-14-2024 Evaluation and management of inpatient [facility] Start: 01-14-2024 End: 01-14-2024 Evaluation and management of inpatient [facility] Start: 12-28-2023 End: 12-28-2023 ambulatory KETURAH FLORES Not Available Start: 12-17-2023 End: 12-17-2023 ambulatory JOSE MOLINA Not Available Start: 12-11-2023 End: 12-11-2023 ambulatory GRISELDA WILKINS Not Available Start: 12-08-2023 Bamboo flowsheet Griselda Kelbley PRISM INSPECTOR [facility] Start: 12-08-2023 Bamboo flowsheet Griselda Kelbley PRISM INSPECTOR [facility] Start: 12-08-2023 End: 12-08-2023 ambulatory Griseldanickie Callesbley PRISM INSPECTOR [facility] Comment on above: Acute [...] 11-30-2023 Bamboo flowsheet Keturah A Fit zpatrick DOWEL MAKER Work Phone: [facility] Start: 11-30-2023 Bamboo flowsheet Keturah A Fit zpatrick DOWEL MAKER Work Phone: [facility] Start: 11-30-2023 End: 11-30-2023 Office outpatient visit 25 minutes Keturah Kellie Flores DOWEL MAKER Work Phone: [facility] Comment on above: Acute pain of left k nee (Primary Dx); Right elbow pain Start: 11-30-2023 End: 11-30-2023 ambulatory KETURAH MEMBRENOPATRICK Not Available Start: 09-14-2023 End: 09-14-2023 ambulatory [...] MD Work Phone: Start: 07-23-2023 Mammography Keturah lauren DOWEL MAKER Work Phone: Start: 05-14-2017 Colonoscopy Keturah Arnold leonidas DOWEL MAKER Work Phone: Plan of Treatment Date Care [...] 10:00 AM EDT Office Visit [facility] [address] [facility] [place] [id number] Emmy Grove MD [address] [facility] [place] [address] [facility] Start: 07-05-2025 Medicare Annual Wellness (AWV) Medicare Annual Wellness (AWV) [facility] Start: 07-23-2024 Screening for malignant neoplasm of breast Mammogram [facility] Start: 07-05-2024 End: 07-05-2024 Patient encounter procedure 07/05/2024 10:00 AM EDT Office Visit [facility] [address] [facility] [place] [phone] Emmy Grove MD [address] [facility] [place] [address] [facility] Start: 12-11-2023 End: 12-11-2023 ambulatory 12/11/2023 8:30 AM EST Treatment [facility] [address] [place] [phone] Griselda Wilkins, PRISM INSPECTOR [facility] Start: 12-08-2023 End: 12-08-2023 ambulatory 12/08/2023 1:30 PM EST Treatment [facility] [address] [place] [address] Lisbet Mathias, PRISM INSPECTOR [facility] Start: 12-08-2023 End: 12-08-2023 ambulatory 12/08/2023 8:30 AM EST Treatment [facility] [address] [place] [phone] Griselda Wilkins PTA Arrived [facility] Comment on above: Arrived Start: 12-04-2023 End: 12-04-2023 ambulatory [facility] Comment on above: Acute pain of left k nee (Primary Dx); Acute pain of right shoulder Start: 11-30-2023 End: 11-30-2024 XR Knee - left 4 Views XR knee 4+ views left Imaging Routine Acute pain of left knee Expected: 11/30/2023, Expires: 11/30/2024 [facility] Work Phone: Comment on above: Expected: 11/30/2023 , Expires: 11/30/2024 Start: 11-30-2023 End: 11-30-2023 Patient encounter procedure 11/30/2023 8:30 AM EST Office Visit [facility] [address] [place] [address] Keturah Flores NP [address] [place] [address] Arrived [facility] Comment on above: Arrived Start: 1980 Screening for malignant neoplasm of cervix Pap Smear [facility] Start: 1959 Screening for malignant neoplasm of colon [facility] Immunizations Immunization Date Immunization Notes Care Provider Fa cility 07-15-2024 SARS-COV-2 (COVID-19 ) vaccine, mRNA, spike protein, LNP, PF, brittani-sucrose, 30 mcg/0.3 mL Emmy Grove MD Work Phone: [facility] 07-05-2024 Influenza, High-dose Seasonal, Quadrivalent, Preservative Free Emmy Grove MD Work Phone: [facility] 07-05-2024 Pneumococcal Conjuga te PCV 20 Emmy Grove MD Work Phone: [facility] 07-17-2023 influenza, injectabl e, quadrivalent, preservative free Keturah Flores DOWEL MAKER Work Phone: [facility] 08-08-2022 Moderna Bivalent Booster Vaccination Keturah Faustintrick DOWEL MAKER Work Phone: [facility] 08-08-2022 SARS-COV-2 (COVID-19 ) vaccine, mRNA, spike protein, LNP, bivalent, preservative free, 30 mcg/0.3 mL dose, brittani-sucrose formulation Keturah Faustintrick DOWEL MAKER Work Phone: [facility] 07-08-2022 influenza, injectabl e, quadrivalent, preservative free Keturah Flores DOWEL MAKER Work Phone: [facility] 07-24-2021 influenza, injectabl e, quadrivalent, preservative free Keturah Flores DOWEL MAKER Work Phone: [facility] 07-16-2020 influenza, injectabl e, quadrivalent, preservative free Keturah Flores DOWEL MAKER Work Phone: [facility] 10-08-2019 tetanus toxoid, redu valentino diphtheria toxoid, and acellular pertussis vaccine, adsorbed Keturah Flores DOWEL MAKER Work Phone: [facility] 08-24-2019 influenza, injectabl e, quadrivalent, contains preservative Keturah Flores DOWEL MAKER Work Phone: [facility] 04-13-2019 zoster vaccine recombinant Keturah Flores DOWEL MAKER Work Phone: [facility] 01-24-2019 zoster vaccine recombinant Keturah Flores DOWEL MAKER Work Phone: [facility] 08-11-2018 influenza, injectabl e, quadrivalent, contains preservative Keturah Flores DOWEL MAKER Work Phone: [facility] 08-17-2017 influenza, injectabl e, quadrivalent, preservative free Keturah Flores DOWEL MAKER Work Phone: [facility] 08-11-2016 influenza, injectabl e, quadrivalent, preservative free Keturah Flores DOWEL MAKER Work Phone: [facility] 08-20-2015 influenza, seasonal, injectable, preservative free Keturah Flores DOWEL MAKER Work Phone: [facility] 07-06-2015 zoster vaccine, live Keturah Flores DOWEL MAKER Work Phone: [facility] 08-11-2014 influenza, seasonal, injectable, preservative free Keturah Flores DOWEL MAKER Work Phone: [facility] 06-09-2013 zoster vaccine, live Keturah Flores DOWEL MAKER Work Phone: [facility] 05-20-2011 tetanus and diphther ia toxoids, adsorbed, preservative free, for adult use (5 Lf of tetanus toxoid and 2 Lf of diphtheria toxoid) Keturah Flores DOWEL MAKER Work Phone: [facility] 05-20-2011 tetanus toxoid, redu vlaentino diphtheria toxoid, and acellular pertussis vaccine, adsorbed Keturah Flores DOWEL MAKER Work Phone: [facility] 10-23-2009 novel [id number], preservative-free, injectable Keturah Flores DOWEL MAKER Work Phone: [facility] Payers Date Payer Category Payer Self-pay 2024 Medicaid [employer] MED[employer]ARE A DVANTAGE [id number] 2024 Medicare [id number] 2023 Managed Care HMO (unspecified) ONUR MOHR [id number] 2023-Present [address] [place] [address] HMO [id number] 2023 Private Health Insurance [id number] 1959 Unknown [id number] 1959 Unknown [id number] 2.16.840.1.559774.3.579.2. 593 1959 Unknown [id number] 2.16.840.1.266249.3.579.2. 593 1959 Unknown [id number] 2.16.840.1.426677.3.579.2. 1286 1959 Unknown [id number] 2.16.840.1.360306.3.579.2. 1259 1959 Unknown [id number] 2.16.840.1.818602.3.579.2. 1259 1959 Unknown [id number] 2.16.840.1.448653.3.579.2. 1259 1959 Unknown [id number] 2.16.840.1.596585.3.579.2. 1259 1959 Unknown [id number] 2.16.840.1.392998.3.579.2. 1259 1959 Unknown [id number] 2.16.840.1.113605.3.579.2. 1259 1959 Unknown [id number] 2.16.840.1.840665.3.579.2. 1259 1959 Unknown [id number] 2.16.840.1.206422.3.579.2. 1259 1959 Unknown [id number] 2.16.840.1.843535.3.579.2. 1259 1959 Unknown [id number] 2.16.840.1.578049.3.579.2. 1259 1959 Unknown [id number] 2.16.840.1.901422.3.579.2. 1259 1959 Unknown [id number] 2.16.840.1.518165.3.579.2. 1259 1959 Unknown [id number] 2.16.840.1.064369.3.579.2. 1259 Unknown [facility] Unknown [id number] 2.16.840.1.840638.3.579.2. 531 Social History Date Type Detail Facility Start: 03-19-2023 Tobacco smoking status NVIS Never smoked tobacco [facility] Work Phone: [...] to any clubs or organizations such as sikh groups, unions, fraternal or athletic groups, or [...] Not at all [facility] (I/We) worried yelitza er (my/our) food would run out before (I/we) got money to buy more. Never true [facility] Start: 07-16-2023 Alcohol Comment 1-0 drinks a week [facility] Start: 1960 Sex Assigned At Female [facility] Start: 03-19-2023 Gender identity Identifies as female gender (finding) [facility] Start: 03-19-2023 Sexual orientation Heterosexual (finding) [facility] Goals Date Patient Goal Desired Activity /State Personal health goal History of Present illness Narrative 11-30-2023 Keturah Flores, DOWEL MAKER - 11/30/2023 8:30 AM EST Note Date [...] it gets painful. documented in this encounter [facility] Evaluation note Note Date & Type Note Facility Evaluation note Diagnosis Acute pain of left knee- Primary Right elbow pain Pain in joint, upper arm documented in this encounter [facility] Evaluation note Note Date & Type Note Facility Evaluation note Diagnosis Acute pain of left knee documented in this encounter [facility] Evaluation note Note Date & Type Note Facility Evaluation note Diagnosis Acute pain of left knee- Primary documented in this encounter [facility] Evaluation note Note Date & [...] Osteopenia, unspecified location documented in this encounter [facility] History of Present illness Narrative Note Date & Type Note Facility History of Present illness Narrative Triage note, vital signs, past medical history and allergies [id number] female with complaints of a laceration to [...] denies any significant past medical problems. [facility] Work Phone: Summary Purpose Family History No [...] and content) DATE CREATED AUTHOR 09/20/2020 [facility] DATE CREATED AUTHOR AUTHOR'S ORGANIZ ATION 04/02/2022 [employer] DATE CREATED AUTHOR AUTHOR'S ORGANIZ ATION 07/08/2022 [facility] DATE CREATED AUTHOR AUTHOR'S ORGANIZ ATION 01/15/2024 [facility] DATE CREATED AUTHOR AUTHOR'S ORGANIZ ATION 07/30/2024 [facility] EPIC DATE CREATED AUTHOR AUTHOR'S ORGANIZ ATION 09/12/2024 [facility] Care Teams (unrecognized sec tion and content) Manufacturing Baker Relationship Specialty Start Date End Date Emmy Grove MD [address] [place] [address] PCP - General Family Medicine 03/19/23 Saadia Deras NP [address] [place] [address] PCP - Medical [employer] 03/26/23 Manufacturing Baker Relationship Specialty Start Date End Date Emmy Grove MD [address] [place] [address] PCP - General Family Medicine 03/19/23 Saadia Deras NP [address] [place] [address] PCP - Medical [employer] 03/26/23 Manufacturing Baker Relationship Specialty Start Date End Date Emmy Grove MD [address] [place] [address] PCP - General Family Medicine 03/19/23 Saadia Deras NP [address] [place] [address] PCP - Medical [employer] 03/26/23 Manufacturing Baker Relationship Specialty Start Date End Date Emmy Grove MD [address] [place] [address] PCP - General Family Medicine 03/19/23 Saadia Deras NP [address] [place] [address] PCP - Medical [employer] 03/26/23 Manufacturing Baker Relationship Specialty Start Date End Date Emmy Grove MD [address] [place] [address] PCP - General Family Medicine 03/19/23 Saadia Deras NP [address] [place] [address] PCP - Medical [employer] 03/26/23 Manufacturing Baker Relationship Specialty Start Date End Date Emmy Grove MD [address] [place] [address] PCP - General Family Medicine 03/19/23 Saadia Deras NP [address] [place] [address] PCP - Medical [employer] 03/26/23 Manufacturing Baker Relationship Specialty Start Date End Date Emmy Grove MD [address] [facility] [place] [address] PCP - General Family Medicine 03/19/23 Saadia Deras NP [address] [place] [address] PCP - Medical [facility] 03/26/23 Manufacturing Baker Relationship Specialty Start Date End Date Emmy Grove MD [address] [place] [address] PCP - General Family Medicine 03/19/23 Emmy Grove MD [address] [place] [address] PCP - [facility] 03/26/24 Reason for Visit (unrecogniz ed section and content) Reason Comments Knee Pain Specialty Diagnoses / Procedures Referred By Imer motta Referred To Contact Physical Therapy Diagnoses Acute pain of left knee Procedures NE OFFICE/OUTPATIENT NEW HIGH MDM 60 MINUTES Keturah Flores NP [address] [place] [address] Jose Molina, PT [address] [facility] [address] [place] [address] Referral ID Status Reason Start Date Expiration Date Visits Requested Visits Authorized [id number] Authorized Specialty Services Required 12/01/2023 05/29/2024 99 [...] BE BASED ON THE PRIMARY CLINICAL RECORDS. [facility] [employer] [facility]. provides no warranty or guarantee of the accuracy or completeness of information in this document.
== END 2024-09-12 08:27 | disposition home or self-care (01) ==
LOC: VC 08:33
PROVIDERS: PCP Radiology Diagnostic Radiology; Visit Provider Radiology Diagnostic Radiology
DX: I83.813 Varicose veins of bilateral lower extremities with pain (principal)
CPT/HCPCS: 36471

== ENCOUNTER 2024-09-19 08:57 | Outpatient (OUT) | payer MEDICARE, SELFPAY ==
--- NOTE | 2024-09-16 09:03 | V.VEINS.HP ---
Vital Signs 09/19/24 09:05 BP Location Left Brachial BP Position Sitting BP Cuff Size Adult BP Source Manual Cuff Respiration 16 Pulse 63 Pulse Source Monitor Pulse Oximetry (%) 95 Oxygen Delivery Method Room Air Varicose Veins Patient in today for sclerotherapy Willy Bearden MD personally performed the services described in this documentation, as scribed by Nel Valerio RN in my presence and it is both accurate and complete. INel RN, am scribing for, and in the presence of, Dr. Willy Flores and in the presence of the patient. aching and dull 3 10 years Worsened in recent months: Yes standing elevating extremities Reports limb pain (bilateral lower legs) History of lower extremity trauma: No Superficial thrombophlebitis: No Family history of varicose veins: yes (Patient's father) Has patient had previous lower extremity venous surgery: No Patient has previously received the following treatment(s) for lower extremity varicose veins: Reports sclerotherapy (2013 Dr. Palacios) Does patient have a history of : yes Does patient intend to have future pregnancies: no Has patient had lower extremity venous scan with relux testing: No Support hose used: Yes Problems walking or doing physical activity: No How does it affect you: often has to stop activity and rest and elevate legs/feet Do you walk much: Yes Do you stand much: Yes Review of Systems ROS Narrative Willy Bearden MD personally performed the services described in this documentation, as scribed by Nel Valerio RN in my presence and it is both accurate and complete. INel RN, am scribing for, and in the presence of, Dr. Willy Flores and in the presence of the patient. Neurological Reports: numbness in extremities and weakness in extremities [facility] Medical History (Updated 09/05/24 @ 09:02 by Magdalena Mustafa) Phlebitis and thrombophlebitis of superficial vessels of left lower extremity ?I80.02 - Phlebitis and thrombophlebitis of superficial vessels of left lower extremity (ICD-10) Hypercholesteremia ?E78.00 - Pure hypercholesterolemia, unspecified (ICD-10) Tonsil and adenoid disease, chronic ?J35.9 - Chronic disease of tonsils and adenoids, unspecified (ICD-10) Cataract ?H26.9 - Unspecified cataract (ICD-10) Pain due to varicose veins of both lower extremities ?I83.813 - Varicose veins of bilateral lower extremities with pain (ICD-10) Surgical History (Updated 09/07/24 @ 11:52 by Sly Gonzalez) S/P sclerotherapy of varicose veins ?Z98.890 - Other specified postprocedural states (ICD-10) ?Z86.79 - Personal history of other diseases of the circulatory system (ICD-10) Status post laser ablation of incompetent vein ?Z98.890 - Other specified postprocedural states (ICD-10) Hx of breast reduction, elective ?Z98.890 - Other specified postprocedural states (ICD-10) Family History (Updated 05/13/24 @ 11:37 by Sly Gonzalez) Father Family history of cancer Varicose veins of bilateral lower extremities with pain Carotid arterial disease Other Family history not known due to adoption Family history of COPD (chronic obstructive pulmonary disease) Family history of myocardial infarction Social History (Updated 05/13/24 @ 11:34 by Sly Gonzalez) Within the past year, how often did you have a drink containing alcohol: monthly or less Smoking status: Never smoker Non-prescribed substance use: denies use Meds Home Medications and Allergies Home Medications ?Medication ?Instructions ?Recorded ?Confirmed ?Type atorvastatin 10 mg tablet (Lipitor) 10 mg PO DAILY 05/13/24 05/13/24 History fluvoxamine 100 mg mg PO 05/13/24 History capsule,extended release 24 hr Allergies Allergy/AdvReac Type Severity Reaction Status Date / Time No Known Drug Allergies Allergy Verified 05/13/24 12:22 Exam Narrative Exam Narrative: IWilly MD personally performed the services described in this documentation, as scribed by Nel Valerio RN in my presence and it is both accurate and complete. Nel Bearden RN, am scribing for, and in the presence of, Dr. Willy Flores and in the presence of the patient. Assessment and Plan Assessment and Plan (1) Pain due to varicose veins of both lower extremities: Plan The patient tolerated the procedure well without complication.? The patient verbalizes understanding and states they will comply.? Patient was given post-procedure instructions. Patient was discharged in good condition.? Scheduled to undergo follow-up evaluation/additional treatment on? 12/2/24. Willy Bearden MD personally performed the services described in this documentation, as scribed by Nel Valerio RN in my presence and it is both accurate and complete. Nel Bearden RN, am scribing for, and in the presence of, Dr. Willy Flores and in the presence of the patient. Procedures Procedure Instructions Procedures sclerotherapy: Risks and benefits of the procedure were discussed at length and informed written consent was obtained.? Time-out procedure was performed and the correct patient and procedure were confirmed.? Staff present during time-out: Nel Valerio RN and Willy Flores MD.? Patient prepped and procedure performed in usual sterile fashion. Injections performed by Dr. Flores and Nel Valerio RN Sclerosing Agent:?? 4cc 0.5% Polidocanol Site Injected: left leg Number of Injections: 32 Anesthesia: n/a The patient tolerated the procedure well without complication.? Hemostasis was obtained and thigh-high compression stocking was applied by patient.? Instructed patient to wear stocking for at least 96 hours and sleep with it and only remove for showering.? Will wear stocking for 2 weeks.? The patient verbalizes understanding and states they will comply.? Patient was given post-procedure instructions. Patient was discharged in good condition.? Scheduled to undergo additional injection sclerotherapy on 09/26/24. Willy Bearden MD personally performed the services described in this documentation, as scribed by Nel Valerio RN in my presence and it is both accurate and complete. Nel Bearden RN, am scribing for, and in the presence of, Dr. Willy Flores and in the presence of the patient.
--- NOTE | 2024-09-16 09:05 | W.VEIN ---
Discharge Plan Discharge Disposition: Home, Self-Care Outpatient Diagnostics: VC INJ Sclerosing SOLMULT Vein (Routine) Timeframe: 1 Month Facility: [facility] - Location: [facility] Ordered By: Willy Flores Follow Up Appointments: 09/26/24 Plan of Treatment: sclerotherapy right leg Patient Instructions: Polidocanol (By injection) (Asclera, Varithena) Print Language: Bengali Discharge Date/Time: 09/19/24 09:39
--- NOTE | 2024-09-19 08:59 | VEIN_ITS ---
[address] [address] Patient Name: SYED ESTEBAN MRN: [id number] date: 1960 Sex: F Assigned Patient Location: Current Patient Location: Accession/Order Number: [id number] Exam Date: 09/19/2024 09:04 Report Date: 09/20/2024 06:48 At the request of: RUBY GRIJALVA Procedure: VC INJ Sclerosing SOLMULT Vein EXAMINATION: VC INJ Sclerosing SOLMULT Vein HISTORY: I83.813 - Varicose veins of bilateral lower extremities w... The risks and benefits of the procedure were explained at length to the patient and informed written consent was obtained. The procedure was performed under sterile technique. The patient's leg was wrapped with Coban and postprocedural verbal and written instructions provided. Nel Valerio RN was present and assisted. SCLEROSANT: 2mL 0.5% Polidocanol. VEIN(S) INJECTED: 32 veins in the left leg. VISUALIZATION: Ultrasound was not used to visualize the sclerosant. ANESTHESIA: Supercooled air. COMPLICATIONS: None. Electronically authenticated by: TALI GROSS Date: 09/20/2024 06:48
[2024-09-19 09:05] VITALS: PULSE 63; O2SAT 95
--- OUTSIDE RECORDS SUMMARY | 2024-09-19 09:19 | XMS_ITS | CCD ---
Author Organization [facility] CliniSyoh Care Team Providers Care Cement Fittings Maker Name Role Phone FLAQUITA RENAE Consulting Unavailable FLAQUITA RENAE Attending Unavailable EMMY GROVE Primary Care Unavailable FLAQUITA RENAE Admitting Unavailable NATHALIA LYNN Admitting Unavailable NATHALIA LYNN Consulting Unavailable NATHALIA LYNN Attending Unavailable Emmy Grove Unavailable [phone] Unavailable Unavailable Emmy Grove MD Primary [...] GROVE Referring Unavailable Emmy Grove MD Unavailable Doc Cohen Attending Unavailab Doc Sheriff [...] NEEDED. Quantity: 30 Refills: 0 Ordered: 01-Apr-2022 Km ANNAAlejandra Start : 01-Apr-2022 Active mupirocin 0.02 mg/mg topical ointment (1 source) RNA Synthetase Inhibitor Antibacterial Start: 04-01-2022 Mupirocin 2 % External Ointment Apply twice daily to affected area for 7 days Quantity: 1 Refills: 0 Ordered: 01-Apr-2022 Mk ALIXSylvieTAVOAlejandra Start : 01-Apr-2022 Active Xeroform Petrolat Gauze 1 x8 External (1 source) Start: 04-01-2022 Xeroform Petrolat Gauze 1 x8 External Apply to wound now Quantity: 0 Refills: 0 Ordered: 01-Apr-2022 Mk HERNANDEZNSylvieAPARTMENT GROUNDSKEEPERAlejandra Start : 01-Apr-2022 Complete Problems Active Problems [...] José Antonio Nicole M.D. Normal Not Available [id number] 01-14-2024 [id number] DATE OF VISIT: 01/14/2024 ANESTHESIA: General. PREOPERATIVE [...] recovery room in satisfactory condition. CWC/MODL J#: [id number] Normal [facility] XR KNEE 4+ VIEWS LEFTon XR [...] VERY IMPORTANT TO YOUR HEALTH. THE CURRENT [employer] GUIDELINES RECOMMENDS ANNUAL MAMMOGRAPHY BEGINNING AT AGE 39 THIS FACILITY USES A REMINDER SYSTEM TO ENSURE ALL PATIENTS RECEIVE REMINDER NOTIFICATIONS AT THE APPROPRIATE TIME BASED ON THE RECOMMENDATIONS OF THIS EXAM. Report reported and signed by Kulwant Tomlin on 07/08/2022 1053 Normal [facility] Auto Design Checker Heart Rateon 04-01-2022 Adult depression screening assessment No [facility] Work Phone: Fall risk assessment a) No falls within the last year [facility] Work Phone: Heart Rate Regular [facility] Work Phone: Tobacco use status [facility] b) No [facility] Work Phone: Heart Rate Normal [facility] [...] finger tip; FAVIOLA = N; Sent To: [facility] Start: Mupirocin 2 % External Ointment; Apply twice daily to affected area for 7 days Rx By: Alejandra Terrazas; Dispense: 0 Days ; #:1 X 15 GM Tube; Refill: 0;For: Avulsion, finger tip; FAVIOLA = N; Sent To: [facility] Administer: Xeroform Petrolat Gauze 1 x8 [...] No Known Drug Allergies Recorded By: Alejandra Terrzaas; 04/01/2022 12:58:18 PM Vitals Vital Signs Recorded: 01Apr2022 12:15PM Ykkgagkvdyh75.8 F, Temporal Heart Rate58 Pulse QualityRegular Ewflqfqntwe59 Respiration QualityNormal Whulzbra099, RUE, Sitting Zrhbwrwph13, RUE, Sitting Blood Pressure Cuff SizeLarge Height5 ft 6 in Ooywhr477 lb BMI Dpmckxolji38.63 kg/m2 BSA Calculated1.84 Tobacco Useb) No PHQ-2 #1. Over the last 2 weeks have you felt down, depressed or hopeless? (If yes, answer PHQ-9 below)No PHQ-2 #2. Over the last 2 weeks have you felt little interest or pleasure in doing things? (If yes, answer PHQ-9 below)No Fall Screeninga) No falls within the last year O2 Jolwyjptsa85, RA Pain Scale5 Physical Exam Constitutional: Well [...] Apr 01 2022 1:02PM EST (Author) Normal [facility] COVID-19 PCRon 09-16-2020 SARS-CoV-2, HELENA Not Detected Normal Not Detected [facility] Comment on above: Result Comment: This nucleic acid amplification test was developed and its performance characteristics determined by [facility]. Nucleic acid amplification tests include PCR and [...] Performed By: #### C VDPCR, CVDSTAT #### [facility] [address], [place] [address] Caitlin Mehta PRIORITY COVID PROCESSINGon 09-16-2020 Comment Comment Normal [facility] Comment on above: Result Comment: Rece ived Performed By: #### C VDPCR, CVDSTAT #### [facility] [address], [place] [address] Caitlin Mehta Vital Signs Date Time Vital Sign Value Performing Clinician Facility 11-30-2023 08:37-0500 Body height 167.6 cm Keturah Membrenopatrick RECREATION ASSISTANT Work Phone: [facility] 11-30-2023 08:37-0500 Body mass index (BMI) [Ratio] 26.41 kg/m2 Keturah Membrenopatrick RECREATION ASSISTANT Work Phone: [facility] 11-30-2023 08:37-0500 Body weight 74.21 kg Keturah Membrenopatrick RECREATION ASSISTANT Work Phone: [facility] 11-30-2023 08:37-0500 Diastolic blood pressure 80 mm[Hg] Keturah Michaelzpatrick RECREATION ASSISTANT Work Phone: [facility] 11-30-2023 08:37-0500 Heart rate 64 /min Keturah Membrenopatrick RECREATION ASSISTANT Work Phone: [facility] 11-30-2023 08:37-0500 SaO2% (BldA) [Mass fraction] 96 % Keturah Membrenopatrick RECREATION ASSISTANT Work Phone: [facility] 11-30-2023 08:37-0500 Systolic blood pressure 126 mm[Hg] Keturah Membrenopatrick RECREATION ASSISTANT Work Phone: [facility] 04-01-2022 12:15-0400 Body height 167.64 cm Emmy Grove Work Phone: [facility] Work Phone: 04-01-2022 12:15-0400 Body mass index (BMI) [Ratio] 26.63 kg/m2 Emmy Grove Work Phone: [facility] Work Phone: 04-01-2022 12:15-0400 Body surface area Derived from formula 1.84 m2 Emmy Josh Grove Work Phone: [facility] Work Phone: 04-01-2022 12:15-0400 Body temperature 97.8 [degF] Emmy Grove Work Phone: [facility] Work Phone: 04-01-2022 12:15-0400 Body weight 74.84 kg Emmy Grove Work Phone: [facility] Work Phone: 04-01-2022 12:15-0400 Diastolic blood pressure 66 mm[Hg] Emmy Grove Work Phone: [facility] Work Phone: 04-01-2022 12:15-0400 Heart rate 58 /min Emmy Grove Work Phone: [facility] Work Phone: 04-01-2022 12:15-0400 Respiratory rate 18 /min Emmy Grove Work Phone: [facility] Work Phone: 04-01-2022 12:15-0400 SaO2% (BldA) [Mass fraction] 98 % Emmy Grove Work Phone: [facility] Work Phone: 04-01-2022 12:15-0400 Systolic blood pressure 131 mm[Hg] Emmy Grove Work Phone: [facility] Work Phone: 04-01-2022 12:15-0400 5 1 Emmy Grove Work Phone: [facility] Work Phone: Comment on above: PainScale Encounters Encounter Date Encounter Type Care Provider Facility Start: 09-09-2024 ambulatory Doc Pérez acility:[facility] Start: 08-22-2024 End: 08-22-2024 Orders Only Emmy Grove MD Work Phone: [facility] Comment on above: Osteopenia, unspecif ied location Start: 07-25-2024 End: 07-25-2024 ambulatory EMMY GROVE Not Available Start: 07-05-2024 End: 07-05-2024 ambulatory EMMY GROVE Not Available Start: 01-14-2024 End: 01-14-2024 Evaluation and management of inpatient [facility] Start: 01-14-2024 End: 01-14-2024 Evaluation and management of inpatient [facility] Start: 12-28-2023 End: 12-28-2023 ambulatory KETURAH FLORES Not Available Start: 12-17-2023 End: 12-17-2023 ambulatory JOSE MOLINA Not Available Start: 12-11-2023 End: 12-11-2023 ambulatory GRISELDA WILKINS Not Available Start: 12-08-2023 Bamboo flowsheet Griselda Kelbley ENVIRONMENTAL FIELD SERVICES TECHNICIAN [facility] Start: 12-08-2023 Bamboo flowsheet Griselda Kelbley ENVIRONMENTAL FIELD SERVICES TECHNICIAN [facility] Start: 12-08-2023 End: 12-08-2023 ambulatory Griseldanickie Callesbley ENVIRONMENTAL FIELD SERVICES TECHNICIAN [facility] Comment on above: Acute [...] 11-30-2023 Bamboo flowsheet Keturah A Fit zpatrick RECREATION ASSISTANT Work Phone: [facility] Start: 11-30-2023 Bamboo flowsheet Keturah A Fit zpatrick RECREATION ASSISTANT Work Phone: [facility] Start: 11-30-2023 End: 11-30-2023 Office outpatient visit 25 minutes Keturah Kellie Flores RECREATION ASSISTANT Work Phone: [facility] Comment on [...] Work Phone: Start: 07-23-2023 Mammography Keturah lauren RECREATION ASSISTANT Work Phone: Start: 05-14-2017 Colonoscopy Keturah Arnold leonidas RECREATION ASSISTANT Work Phone: Plan of Treatment Date Care [...] AM EDT Office Visit [facility] [address] [facility] [place] [phone] Emmy Grove MD [address] [facility] [place] [address] [facility] Start: 07-05-2025 Medicare Annual Wellness (AWV) Medicare Annual Wellness (AWV) [facility] Start: 07-23-2024 Screening for malignant neoplasm of breast Mammogram [facility] Start: 07-05-2024 End: 07-05-2024 Patient encounter procedure 07/05/2024 10:00 AM EDT Office Visit [facility] [address] [facility] [place] [phone] Emmy Grove MD [address] [facility] [place] [address] [facility] Start: 12-11-2023 End: 12-11-2023 ambulatory 12/11/2023 8:30 AM EST Treatment [facility] [address] [place] [phone] Griselda Wilkins, ENVIRONMENTAL FIELD SERVICES TECHNICIAN [facility] Start: 12-08-2023 End: 12-08-2023 ambulatory 12/08/2023 1:30 PM EST Treatment [facility] [address] [place] [address] Lisbet Mathias, ENVIRONMENTAL FIELD SERVICES TECHNICIAN [facility] Start: 12-08-2023 End: 12-08-2023 ambulatory 12/08/2023 8:30 AM EST Treatment [facility] [address] [place] [phone] Griselda Wilkins PTA Arrived [facility] Comment on above: Arrived Start: 12-04-2023 End: 12-04-2023 ambulatory [facility] Comment on above: Acute pain of left k nee (Primary Dx); Acute pain of right shoulder Start: 11-30-2023 End: 11-30-2024 XR Knee - left 4 Views XR knee 4+ views left Imaging Routine Acute pain of left knee Expected: 11/30/2023, Expires: 11/30/2024 [facility] Work Phone: Comment on above: Expected: 11/30/2023 , Expires: 11/30/2024 Start: 11-30-2023 End: 11-30-2023 Patient encounter procedure 11/30/2023 8:30 AM EST Office Visit [facility] [address] [place] [address] Keturah Flores NP [address] [place] [address] Arrived [facility] Comment on above: Arrived Start: 1980 Screening for malignant neoplasm of cervix Pap Smear [facility] Start: 1960 Screening for malignant neoplasm of colon [facility] Immunizations Immunization Date Immunization Notes Care Provider Fa cility 07-15-2024 SARS-COV-2 (COVID-19 ) vaccine, mRNA, spike protein, LNP, PF, brittani-sucrose, 30 mcg/0.3 mL Emmy Grove MD Work Phone: [facility] 07-05-2024 Influenza, High-dose Seasonal, Quadrivalent, Preservative Free Emmy Grove MD Work Phone: [facility] 07-05-2024 Pneumococcal Conjuga te PCV 20 Emmy Grove MD Work Phone: [facility] 07-17-2023 influenza, injectabl e, quadrivalent, preservative free Keturah Flores RECREATION ASSISTANT Work Phone: [facility] 08-08-2022 Moderna Bivalent Booster Vaccination Keturah Faustintrick RECREATION ASSISTANT Work Phone: [facility] 08-08-2022 SARS-COV-2 (COVID-19 ) vaccine, mRNA, spike protein, LNP, bivalent, preservative free, 30 mcg/0.3 mL dose, brittani-sucrose formulation Keturah Faustintrick RECREATION ASSISTANT Work Phone: [facility] 07-08-2022 influenza, injectabl e, quadrivalent, preservative free Keturah Flores RECREATION ASSISTANT Work Phone: [facility] 07-24-2021 influenza, injectabl e, quadrivalent, preservative free Keturah Flores RECREATION ASSISTANT Work Phone: [facility] 07-16-2020 influenza, injectabl e, quadrivalent, preservative free Keturah Flores RECREATION ASSISTANT Work Phone: [facility] 10-08-2019 tetanus toxoid, redu valentino diphtheria toxoid, and acellular pertussis vaccine, adsorbed Keturah Flores RECREATION ASSISTANT Work Phone: [facility] 08-24-2019 influenza, injectabl e, quadrivalent, contains preservative Keturah Flores RECREATION ASSISTANT Work Phone: [facility] 04-13-2019 zoster vaccine recombinant Keturah Flores RECREATION ASSISTANT Work Phone: [facility] 01-24-2019 zoster vaccine recombinant Keturah Flores RECREATION ASSISTANT Work Phone: [facility] 08-11-2018 influenza, injectabl e, quadrivalent, contains preservative Keturah Flores RECREATION ASSISTANT Work Phone: [facility] 08-17-2017 influenza, injectabl e, quadrivalent, preservative free Keturah Flores RECREATION ASSISTANT Work Phone: [facility] 08-11-2016 influenza, injectabl e, quadrivalent, preservative free Keturah Flores RECREATION ASSISTANT Work Phone: [facility] 08-20-2015 influenza, seasonal, injectable, preservative free Keturah Flores RECREATION ASSISTANT Work Phone: [facility] 07-06-2015 zoster vaccine, live Keturah Flores RECREATION ASSISTANT Work Phone: [facility] 08-11-2014 influenza, seasonal, injectable, preservative free Keturah Flores RECREATION ASSISTANT Work Phone: [facility] 06-09-2013 zoster vaccine, live Keturah Flores RECREATION ASSISTANT Work Phone: [facility] 05-20-2011 tetanus and diphther ia toxoids, adsorbed, preservative free, for adult use (5 Lf of tetanus toxoid and 2 Lf of diphtheria toxoid) Keturah Flores RECREATION ASSISTANT Work Phone: [facility] 05-20-2011 tetanus toxoid, redu valentino diphtheria toxoid, and acellular pertussis vaccine, adsorbed Keturah Flores RECREATION ASSISTANT Work Phone: [facility] 10-23-2009 novel [id number], preservative-free, injectable Keturah Flores RECREATION ASSISTANT Work Phone: [facility] Payers Date Payer Category Payer Self-pay 2024 Medicaid [employer] MEDICARE A DVANTAGE [id number] 2024 Medicare [id number] 2023 Managed Care HMO (unspecified) ONUR MOHR [id number] 2023-Present [address] [place] [address] HMO [id number] 2023 Private Health Insurance [id number] 1959 Unknown [id number] 1959 Unknown [id number] 2.16.840.1.552055.3.579.2. 593 1959 Unknown [id number] 2.16.840.1.579354.3.579.2. 593 1959 Unknown [id number] 2.16.840.1.013882.3.579.2. 1286 1959 Unknown [id number] 2.16.840.1.427592.3.579.2. 1259 1959 Unknown [id number] 2.16.840.1.311610.3.579.2. 1259 1959 Unknown [id number] 2.16.840.1.455034.3.579.2. 1259 1959 Unknown [id number] 2.16.840.1.460744.3.579.2. 1259 1959 Unknown [id number] 2.16.840.1.116299.3.579.2. 1259 1959 Unknown [id number] 2.16.840.1.115320.3.579.2. 1259 1959 Unknown [id number] 2.16.840.1.060877.3.579.2. 1259 1959 Unknown [id number] 2.16.840.1.432350.3.579.2. 1259 1959 Unknown [id number] 2.16.840.1.946813.3.579.2. 1259 1959 Unknown [id number] 2.16.840.1.283517.3.579.2. 1259 1959 Unknown [id number] 2.16.840.1.589679.3.579.2. 1259 1959 Unknown [id number] 2.16.840.1.887076.3.579.2. 1259 1959 Unknown [id number] 2.16.840.1.532001.3.579.2. 1259 Unknown [facility] Unknown [id number] 2.16.840.1.686678.3.579.2. 531 Social History Date Type Detail Facility Start: 03-19-2023 Tobacco smoking status WAIS Never smoked tobacco [facility] Work Phone: [...] to any clubs or organizations such as evangelical groups, unions, fraternal or athletic groups, or [...] got money to buy more. Never true [facility] Start: 07-16-2023 Alcohol Comment 1-0 drinks a week [facility] Start: 1960 Sex Assigned At Female [facility] Start: 03-19-2023 Gender identity Identifies as female gender (finding) [facility] Start: 03-19-2023 Sexual orientation Heterosexual (finding) [facility] Goals Date Patient Goal Desired Activity /State Personal health goal History of Present illness Narrative 11-30-2023 Keturah Flores, RECREATION ASSISTANT - 11/30/2023 8:30 AM EST Note Date [...] it gets painful. documented in this encounter [facility] Evaluation note Note Date & Type Note Facility Evaluation note Diagnosis Acute pain of left knee- Primary Right elbow pain Pain in joint, upper arm documented in this encounter [facility] Evaluation note Note Date & Type Note Facility Evaluation note Diagnosis Acute pain of left knee documented in this encounter [facility] Evaluation note Note Date & Type Note Facility Evaluation note Diagnosis Acute pain of left knee- Primary documented in this encounter [facility] Evaluation note Note Date & Type [...] Osteopenia, unspecified location documented in this encounter [facility] History of Present illness Narrative Note Date & Type Note Facility History of Present illness Narrative Triage note, vital signs, past medical history and allergies [id number] female with complaints of a laceration to [...] denies any significant past medical problems. [facility] Work Phone: Summary Purpose Family History No [...] and content) DATE CREATED AUTHOR 09/20/2020 [facility] DATE CREATED AUTHOR AUTHOR'S ORGANIZ ATION 04/02/2022 [employer] DATE CREATED AUTHOR AUTHOR'S ORGANIZ ATION 07/08/2022 [facility] dical Specialist DATE CREATED AUTHOR AUTHOR'S ORGANIZ ATION 01/15/2024 [facility] DATE CREATED AUTHOR AUTHOR'S ORGANIZ ATION 07/30/2024 [facility] dical Specialists EPIC DATE CREATED AUTHOR AUTHOR'S ORGANIZ ATION 09/12/2024 [facility] ysician [facility] Care Teams (unrecognized sec tion and content) Cement Fittings Maker Relationship Specialty Start Date End Date Emmy Grove MD [address] [place] [address] PCP - General Family Medicine 03/19/23 Saadia Deras NP [address] [place] [address] PCP - Medical [employer] 03/26/23 Cement Fittings Maker Relationship Specialty Start Date End Date Emmy Grove MD [address] [place] [address] PCP - General Family Medicine 03/19/23 Saadia Deras NP [address] [place] [address] PCP - Medical [employer] 03/26/23 Cement Fittings Maker Relationship Specialty Start Date End Date Emmy Grove MD [address] [place] [address] PCP - General Family Medicine 03/19/23 Saadia Deras NP [address] [place] [address] PCP - Medical [employer] 03/26/23 Cement Fittings Maker Relationship Specialty Start Date End Date Emmy Grove MD [address] [place] [address] PCP - General Family Medicine 03/19/23 Saadia Deras NP [address] [place] [address] PCP - Medical [employer] 03/26/23 Cement Fittings Maker Relationship Specialty Start Date End Date Emmy Grove MD [address] [place] [address] PCP - General Family Medicine 03/19/23 Saadia Deras NP [address] [place] [address] PCP - Medical [employer] 03/26/23 Cement Fittings Maker Relationship Specialty Start Date End Date Emmy Grove MD [address] [place] [address] PCP - General Family Medicine 03/19/23 Saadia Deras NP [address] [place] [address] PCP - Medical [employer] 03/26/23 Cement Fittings Maker Relationship Specialty Start Date End Date Emmy Grove MD [address] [facility] [place] [address] PCP - General Family Medicine 03/19/23 Saadia Deras NP [address] [place] [address] PCP - Medical [facility] 03/26/23 Cement Fittings Maker Relationship Specialty Start Date End Date Emmy Grove MD [address] [place] [address] PCP - General Family Medicine 03/19/23 Emmy Grove MD [address] [place] [address] PCP - [facility] 03/26/24 Reason for Visit (unrecogniz ed section and content) Reason Comments Knee Pain Specialty Diagnoses / Procedures Referred By Imer motta Referred To Contact Physical Therapy Diagnoses Acute pain of left knee Procedures [place] OFFICE/OUTPATIENT NEW HIGH MDM 60 MINUTES Keturah Flores NP [address] [place] [address] Jose Molina, PT [address] [facility] [address] [place] [address] Referral ID Status Reason Start Date Expiration Date Visits Requested Visits Authorized [id number] Authorized Specialty Services Required 12/01/2023 05/29/2024 99 [...] BE BASED ON THE PRIMARY CLINICAL RECORDS. [facility]. provides no warranty or guarantee of the accuracy or completeness of information in this document.
== END 2024-09-19 09:39 | disposition home or self-care (01) ==
LOC: VC 08:57
PROVIDERS: PCP Radiology Diagnostic Radiology; Visit Provider Radiology Diagnostic Radiology
DX: I83.813 Varicose veins of bilateral lower extremities with pain (principal)
CPT/HCPCS: 36471

== ENCOUNTER 2024-09-26 10:31 | Outpatient (OUT) | payer MEDICARE, SELFPAY ==
--- NOTE | 2024-09-26 07:39 | V.VEINS.HP ---
Vital Signs 09/26/24 10:40 BP 124/64 BP Location Left Brachial BP Position Sitting BP Cuff Size Adult BP Source Manual Cuff Respiration 16 Pulse 68 Pulse Source Monitor Pulse Oximetry (%) 99 Oxygen Delivery Method Room Air Comment The patient's blood pressure is elevated. Varicose Veins Patient in today for sclerotherapy Willy Bearden MD personally performed the services described in this documentation, as scribed by Sly Gonzalez RN in my presence and it is both accurate and complete. ISly RN, am scribing for, and in the presence of, Dr. Willy Flores and in the presence of the patient. aching and dull 3 10 years Worsened in recent months: Yes standing elevating extremities Reports limb pain (bilateral lower legs) History of lower extremity trauma: No Superficial thrombophlebitis: No Family history of varicose veins: yes (Patient's father) Has patient had previous lower extremity venous surgery: No Patient has previously received the following treatment(s) for lower extremity varicose veins: Reports sclerotherapy (2013 Dr. Palacios) Does patient have a history of : yes Does patient intend to have future pregnancies: no Has patient had lower extremity venous scan with relux testing: No Support hose used: Yes Problems walking or doing physical activity: No How does it affect you: often has to stop activity and rest and elevate legs/feet Do you walk much: Yes Do you stand much: Yes Review of Systems ROS Narrative Willy Bearden MD personally performed the services described in this documentation, as scribed by Sly Gonzalez RN in my presence and it is both accurate and complete. ISly RN, am scribing for, and in the presence of, Dr. Willy Flores and in the presence of the patient. Neurological Reports: numbness in extremities and weakness in extremities [facility] Medical History (Updated 09/05/24 @ 09:02 by Magdalena Mustafa) Phlebitis and thrombophlebitis of superficial vessels of left lower extremity ?I80.02 - Phlebitis and thrombophlebitis of superficial vessels of left lower extremity (ICD-10) Hypercholesteremia ?E78.00 - Pure hypercholesterolemia, unspecified (ICD-10) Tonsil and adenoid disease, chronic ?J35.9 - Chronic disease of tonsils and adenoids, unspecified (ICD-10) Cataract ?H26.9 - Unspecified cataract (ICD-10) Pain due to varicose veins of both lower extremities ?I83.813 - Varicose veins of bilateral lower extremities with pain (ICD-10) Surgical History (Updated 09/07/24 @ 11:52 by Sly Gonzalez) S/P sclerotherapy of varicose veins ?Z98.890 - Other specified postprocedural states (ICD-10) ?Z86.79 - Personal history of other diseases of the circulatory system (ICD-10) Status post laser ablation of incompetent vein ?Z98.890 - Other specified postprocedural states (ICD-10) Hx of breast reduction, elective ?Z98.890 - Other specified postprocedural states (ICD-10) Family History (Updated 05/13/24 @ 11:37 by Sly Gonzalez) Father Family history of cancer Varicose veins of bilateral lower extremities with pain Carotid arterial disease Other Family history not known due to adoption Family history of COPD (chronic obstructive pulmonary disease) Family history of myocardial infarction Social History (Updated 05/13/24 @ 11:34 by Sly Gonzalez) Within the past year, how often did you have a drink containing alcohol: monthly or less Smoking status: Never smoker Non-prescribed substance use: denies use Meds Home Medications and Allergies Home Medications ?Medication ?Instructions ?Recorded ?Confirmed ?Type atorvastatin 10 mg tablet (Lipitor) 10 mg PO DAILY 05/13/24 05/13/24 History fluvoxamine 100 mg mg PO 05/13/24 History capsule,extended release 24 hr Allergies Allergy/AdvReac Type Severity Reaction Status Date / Time No Known Drug Allergies Allergy Verified 05/13/24 12:22 Exam Narrative Exam Narrative: Willy Bearden MD personally performed the services described in this documentation, as scribed by Sly Gonzalez RN in my presence and it is both accurate and complete. Sly Bearden RN, am scribing for, and in the presence of, Dr. Willy Flores and in the presence of the patient. Assessment and Plan Assessment and Plan (1) Pain due to varicose veins of both lower extremities: Plan Plan of care complete at this time. Patient to f/u in future as necessary. Willy Beardne MD personally performed the services described in this documentation, as scribed by Sly Gonzalez RN in my presence and it is both accurate and complete. I, Sly Gonzalez RN, am scribing for, and in the presence of, Dr. Willy Flores and in the presence of the patient. Procedures Procedure Instructions Procedures sclerotherapy: Risks and benefits of the procedure were discussed at length and informed written consent was obtained.? Time-out procedure was performed and the correct patient and procedure were confirmed.? Staff present during time-out: Sly Gonzalez RN and Willy Flores MD.? Patient prepped and procedure performed in usual sterile fashion. Injections performed by Dr. Flores and Sly Gonzalez RN Sclerosing Agent:?? 4cc 0.5% Polidocanol Site Injected: right leg Number of Injections: 23 Anesthesia: Supercooled air The patient tolerated the procedure well without complication.? Hemostasis was obtained and thigh-high compression stocking was applied by patient.? Instructed patient to wear stocking for at least 96 hours and sleep with it and only remove for showering.? Will wear stocking for 2 weeks.? The patient verbalizes understanding and states they will comply.? Patient was given post-procedure instructions. Patient was discharged in good condition.? Plan of care complete at this time. Patient to f/u in future as necessary. IWilly MD personally performed the services described in this documentation, as scribed by Sly Gonzalez RN in my presence and it is both accurate and complete. ISly RN, am scribing for, and in the presence of, Dr. Willy Flores and in the presence of the patient.
--- NOTE | 2024-09-26 07:41 | P.DS_ITS ---
Discharge Plan Discharge Disposition: Home, Self-Care Plan of Treatment: Plan of care complete at this time. Patient to f/u in future as necessary. Patient Instructions: Polidocanol (By injection) Print Language: Ukrainian Discharge Date/Time: 09/26/24 14:55
--- NOTE | 2024-09-26 10:32 | VEIN_ITS ---
[address] [address] Patient Name: SYED ESTEBAN MRN: [id number] date: 1960 Sex: F Assigned Patient Location: Current Patient Location: Accession/Order Number: [id number] Exam Date: 09/26/2024 10:32 Report Date: 09/26/2024 16:28 At the request of: TALI GROSS Procedure: VC INJ Sclerosing SOLMULT Vein EXAMINATION: VC INJ Sclerosing SOLMULT Vein HISTORY: I83.813 - Varicose veins of bilateral lower extremities w... The risks and benefits of the procedure were explained at length to the patient and informed written consent was obtained. The procedure was performed under sterile technique. The patient's leg was wrapped with Coban and postprocedural verbal and written instructions provided. Sly Gonzalez RN was present and assisted. SCLEROSANT: 2mL 0.5% Polidocanol. VEIN(S) INJECTED: 23 veins in the right leg. VISUALIZATION: Ultrasound was not used to visualize the sclerosant. ANESTHESIA: Supercooled air. COMPLICATIONS: None. Electronically authenticated by: TALI GROSS Date: 09/26/2024 16:28
[2024-09-26 10:40] VITALS: BP 124/64; PULSE 68; O2SAT 99
--- OUTSIDE RECORDS SUMMARY | 2024-09-26 10:48 | XMS_ITS | CCD ---
Author Organization [facility] CliniSynv Care Team Providers Care Photocopying Machine Operator Name Role Phone FLAQUITA RENAE Consulting Unavailable FLAQUITA RENAE Attending Unavailable EMMY GROVE Primary Care Unavailable FLAQUITA RENAE Admitting Unavailable NATHALIA LYNN Admitting Unavailable NATHALIA LYNN Consulting Unavailable NATHALIA LYNN Attending Unavailable Emmy Grove Unavailable Unavailable Unavailable Emmy Grove MD Primary Care [...] GROVE Referring Unavailable Emmy Grove MD Unavailable [phone] Doc Cohen Attending Unavailab Doc Sheriff Admitting [...] Quantity: 30 Refills: 0 Ordered: 01-Apr-2022 Mk ANANAlejandra Start : 01-Apr-2022 Active mupirocin 0.02 mg/mg [...] Quantity: 0 Refills: 0 Ordered: 01-Apr-2022 Mk HERNANDEZNSylvieMEDIA SALES CONSULTANTAlejandra Start : 01-Apr-2022 Complete Problems Active Problems [...] José Antonio Nicole M.D. Normal Not Available [id number] 01-14-2024 [id number] DATE OF VISIT: 01/14/2024 ANESTHESIA: General. PREOPERATIVE [...] recovery room in satisfactory condition. CWC/MODL J#: [id number] Normal [facility] XR KNEE 4+ VIEWS LEFTon XR [...] VERY IMPORTANT TO YOUR HEALTH. THE CURRENT [employer] GUIDELINES RECOMMENDS ANNUAL MAMMOGRAPHY BEGINNING AT AGE 39 THIS FACILITY USES A REMINDER SYSTEM TO ENSURE ALL PATIENTS RECEIVE REMINDER NOTIFICATIONS AT THE APPROPRIATE TIME BASED ON THE RECOMMENDATIONS OF THIS EXAM. Report reported and signed by Kulwant Tomlin on 07/08/2022 1053 Normal [facility] Manager Heart Rateon 04-01-2022 Adult depression screening assessment No [facility] Work Phone: Fall risk assessment a) No falls within the last year [facility] Work Phone: Heart Rate Regular [facility] Work Phone: Tobacco use status [facility] b) No [facility] Work Phone: Heart Rate Normal [facility] Work Phone: Heart Rate Large [facility] Work Phone: Office Visit (Urgent Care)on 04-01-2022 Follow-up visit Diagnoses/Problems Assessed Avulsion, finger tip (883.0) (S61.209A) Orders Avulsion, finger tip Start: Cephalexin 500 MG Oral Capsule; TAKE 1 CAPSULE EVERY 6 HOURS DAILY Rx By: Alejandra Terrazas; Dispense: 5 Days ; #:20 Capsule; Refill: 0;For: Avulsion, finger tip; FAVIOLA = N; Sent To: [facility] [address] Start: Mupirocin 2 % External Ointment; Apply twice daily to affected area for 7 days Rx By: Alejandra Terrazas; Dispense: 0 Days ; #:1 X 15 GM Tube; Refill: 0;For: Avulsion, finger tip; FAVIOLA = N; Sent To: [facility] [address] Administer: Xeroform Petrolat Gauze 1 x8 [...] PM Vitals Vital Signs Recorded: 01Apr2022 12:15PM Yuxhgzgooah85.8 F, Temporal Heart Rate58 Pulse QualityRegular Rhyubzfbiyp01 Respiration QualityNormal Hggvcscg351, RUE, Sitting Aozoopuud64, RUE, Sitting Blood Pressure Cuff SizeLarge Height5 ft 6 in Bacydt521 lb BMI Wbwunulcon37.63 kg/m2 BSA Calculated1.84 Tobacco Useb) No PHQ-2 #1. Over the last 2 weeks have you felt down, depressed or hopeless? (If yes, answer PHQ-9 below)No PHQ-2 #2. Over the last 2 weeks have you felt little interest or pleasure in doing things? (If yes, answer PHQ-9 below)No Fall Screeninga) No falls within the last year O2 Aeeesacnfu94, RA Pain Scale5 Physical Exam Constitutional: Well [...] Apr 01 2022 1:02PM EST (Author) Normal [facility] COVID-19 PCRon 09-16-2020 SARS-CoV-2, HELENA Not Detected Normal Not Detected [facility] Comment on above: Result Comment: This nucleic acid amplification test was developed and its performance characteristics determined by [facility]. Nucleic acid amplification tests include PCR and [...] Performed By: #### C VDPCR, CVDSTAT #### [facility] [address] [place], [place] [address] Caitlin Mehta PRIORITY COVID PROCESSINGon 09-16-2020 Comment Comment Normal [facility] Comment on above: Result Comment: Rece ived Performed By: #### C VDPCR, CVDSTAT #### [facility] [address] [place], [place] [address] Caitlin Mehta Vital Signs Date Time Vital Sign Value Performing Clinician Facility 11-30-2023 08:37-0500 Body height 167.6 cm Keturah Membrenopatrick FILM TECHNICIAN Work Phone: [facility] 11-30-2023 08:37-0500 Body mass index (BMI) [Ratio] 26.41 kg/m2 Keturah Membrenopatrick FILM TECHNICIAN Work Phone: [facility] 11-30-2023 08:37-0500 Body weight 74.21 kg Keturah Membrenopatrick FILM TECHNICIAN Work Phone: [facility] 11-30-2023 08:37-0500 Diastolic blood pressure 80 mm[Hg] Keturah Michaelzpatrick FILM TECHNICIAN Work Phone: [facility] 11-30-2023 08:37-0500 Heart rate 64 /min Keturah Membrenopatrick FILM TECHNICIAN Work Phone: [facility] 11-30-2023 08:37-0500 SaO2% (BldA) [Mass fraction] 96 % Keturah Membrenopatrick FILM TECHNICIAN Work Phone: [facility] 11-30-2023 08:37-0500 Systolic blood pressure 126 mm[Hg] Keturah Membrenopatrick FILM TECHNICIAN Work Phone: [facility] 04-01-2022 12:15-0400 Body height 167.64 cm Emmy Grove Work Phone: [facility] Work Phone: 04-01-2022 12:15-0400 Body mass index (BMI) [Ratio] 26.63 kg/m2 Emmy Grove Work Phone: [facility] Work Phone: 04-01-2022 12:15-0400 Body surface area Derived from formula 1.84 m2 Emmy Josh Grove Work Phone: [facility] Work Phone: 04-01-2022 12:15-0400 Body temperature 97.8 [degF] Emmy Grove Work Phone: [facility] Work Phone: 04-01-2022 12:15-0400 Body weight 74.84 kg Emmy Grove Work Phone: [facility] Work Phone: 04-01-2022 12:15-0400 Diastolic blood pressure 66 mm[Hg] Emmy Grove Work Phone: [facility] Work Phone: 04-01-2022 12:15-0400 Heart rate 58 /min Emmy Grove Work Phone: [facility] Work Phone: 04-01-2022 12:15-0400 Respiratory rate 18 /min Emmy Grove Work Phone: [facility] Work Phone: 04-01-2022 12:15-0400 SaO2% (BldA) [Mass fraction] 98 % Emmy Grove Work Phone: [facility] Work Phone: 04-01-2022 12:15-0400 Systolic blood pressure 131 mm[Hg] Emmy Grove Work Phone: [facility] Work Phone: 04-01-2022 12:15-0400 5 1 Emmy Grove Work Phone: [facility] Work Phone: Comment on above: PainScale Encounters Encounter Date Encounter Type Care Provider Facility Start: 09-09-2024 ambulatory Doc Pérez acility:[facility] Start: 08-22-2024 End: 08-22-2024 Orders Only Emmy Grove MD Work Phone: [facility] Comment on above: Osteopenia, unspecif ied location Start: 07-25-2024 End: 07-25-2024 ambulatory EMMY GROVE Not Available Start: 07-05-2024 End: 07-05-2024 ambulatory EMMY GROVE Not Available Start: 01-14-2024 End: 01-14-2024 Evaluation and management of inpatient [facility] Start: 01-14-2024 End: 01-14-2024 Evaluation and management of inpatient [facility] Start: 12-28-2023 End: 12-28-2023 ambulatory KETURAH FLORES Not Available Start: 12-17-2023 End: 12-17-2023 ambulatory JOSE MOLINA Not Available Start: 12-11-2023 End: 12-11-2023 ambulatory GRISELDA WILKINS Not Available Start: 12-08-2023 Bamboo flowsheet Griselda Kelbley RESEARCH METHODS INSTRUCTOR [facility] Start: 12-08-2023 Bamboo flowsheet Griselda Kelbley RESEARCH METHODS INSTRUCTOR [facility] Start: 12-08-2023 End: 12-08-2023 ambulatory Griseldanickie Callesbley RESEARCH METHODS INSTRUCTOR [facility] Comment on above: Acute [...] 11-30-2023 Bamboo flowsheet Keturah A Fit zpatrick FILM TECHNICIAN Work Phone: [facility] Start: 11-30-2023 Bamboo flowsheet Keturah A Fit zpatrick FILM TECHNICIAN Work Phone: [facility] Start: 11-30-2023 End: 11-30-2023 Office outpatient visit 25 minutes Keturah Kellie Flores FILM TECHNICIAN Work Phone: [facility] Comment on [...] Work Phone: Start: 07-23-2023 Mammography Keturah lauren FILM TECHNICIAN Work Phone: Start: 05-14-2017 Colonoscopy Keturah Arnold leonidas FILM TECHNICIAN Work Phone: Plan of Treatment Date Care [...] AM EDT Office Visit [facility] [address] [facility] [place] [place] [id number] Emmy Grove MD [address] [facility] [place] [address] [facility] Start: 07-05-2025 Medicare Annual Wellness (AWV) Medicare Annual Wellness (AWV) [facility] Start: 07-23-2024 Screening for malignant neoplasm of breast Mammogram [facility] Start: 07-05-2024 End: 07-05-2024 Patient encounter procedure 07/05/2024 10:00 AM EDT Office Visit [facility] [address] [facility] [place] [phone] Emmy Grove MD [address] [facility] [place] [address] [facility] Start: 12-11-2023 End: 12-11-2023 ambulatory 12/11/2023 8:30 AM EST Treatment [facility] [address] [place] [phone] Griselda Wilkins, RESEARCH METHODS INSTRUCTOR [facility] Start: 12-08-2023 End: 12-08-2023 ambulatory 12/08/2023 1:30 PM EST Treatment [facility] [address] [place] [address] Lisbet Mathias, RESEARCH METHODS INSTRUCTOR [facility] Start: 12-08-2023 End: 12-08-2023 ambulatory 12/08/2023 8:30 AM EST Treatment [facility] [address] [place] [phone] Griselda Wilkins PTA Arrived [facility] Comment on above: Arrived Start: 12-04-2023 End: 12-04-2023 ambulatory [facility] Comment on above: Acute pain of left k nee (Primary Dx); Acute pain of right shoulder Start: 11-30-2023 End: 11-30-2024 XR Knee - left 4 Views XR knee 4+ views left Imaging Routine Acute pain of left knee Expected: 11/30/2023, Expires: 11/30/2024 [facility] Work Phone: Comment on above: Expected: 11/30/2023 , Expires: 11/30/2024 Start: 11-30-2023 End: 11-30-2023 Patient encounter procedure 11/30/2023 8:30 AM EST Office Visit [facility] [address] [place] [address] Keturah Flores NP [address] [place] [address] Arrived [facility] Comment on above: Arrived Start: 1980 Screening for malignant neoplasm of cervix Pap Smear [facility] Start: 1960 Screening for malignant neoplasm of colon [facility] Immunizations Immunization Date Immunization Notes Care Provider Fa cility 07-15-2024 SARS-COV-2 (COVID-19 ) vaccine, mRNA, spike protein, LNP, PF, brittani-sucrose, 30 mcg/0.3 mL Emmy Grove MD Work Phone: [facility] 07-05-2024 Influenza, High-dose Seasonal, Quadrivalent, Preservative Free Emmy Grove MD Work Phone: [facility] 07-05-2024 Pneumococcal Conjuga te PCV 20 Emmy Grove MD Work Phone: [facility] 07-17-2023 influenza, injectabl e, quadrivalent, preservative free Keturah Flores FILM TECHNICIAN Work Phone: [facility] 08-08-2022 Moderna Bivalent Booster Vaccination Keturah Faustintrick FILM TECHNICIAN Work Phone: [facility] 08-08-2022 SARS-COV-2 (COVID-19 ) vaccine, mRNA, spike protein, LNP, bivalent, preservative free, 30 mcg/0.3 mL dose, brittani-sucrose formulation Keturah Faustintrick FILM TECHNICIAN Work Phone: [facility] 07-08-2022 influenza, injectabl e, quadrivalent, preservative free Keturah Flores FILM TECHNICIAN Work Phone: [facility] 07-24-2021 influenza, injectabl e, quadrivalent, preservative free Keturah Flores FILM TECHNICIAN Work Phone: [facility] 07-16-2020 influenza, injectabl e, quadrivalent, preservative free Keturah Flores FILM TECHNICIAN Work Phone: [facility] 10-08-2019 tetanus toxoid, redu valentino diphtheria toxoid, and acellular pertussis vaccine, adsorbed Keturah Flores FILM TECHNICIAN Work Phone: [facility] 08-24-2019 influenza, injectabl e, quadrivalent, contains preservative Keturah Flores FILM TECHNICIAN Work Phone: [facility] 04-13-2019 zoster vaccine recombinant Keturah Flores FILM TECHNICIAN Work Phone: [facility] 01-24-2019 zoster vaccine recombinant Keturah Flores FILM TECHNICIAN Work Phone: [facility] 08-11-2018 influenza, injectabl e, quadrivalent, contains preservative Keturah Flores FILM TECHNICIAN Work Phone: [facility] 08-17-2017 influenza, injectabl e, quadrivalent, preservative free Keturah Flores FILM TECHNICIAN Work Phone: [facility] 08-11-2016 influenza, injectabl e, quadrivalent, preservative free Keturah Flores FILM TECHNICIAN Work Phone: [facility] 08-20-2015 influenza, seasonal, injectable, preservative free Keturah Flores FILM TECHNICIAN Work Phone: [facility] 07-06-2015 zoster vaccine, live Keturah Flores FILM TECHNICIAN Work Phone: [facility] 08-11-2014 influenza, seasonal, injectable, preservative free Keturah Flores FILM TECHNICIAN Work Phone: [facility] 06-09-2013 zoster vaccine, live Keturah Flores FILM TECHNICIAN Work Phone: [facility] 05-20-2011 tetanus and diphther ia toxoids, adsorbed, preservative free, for adult use (5 Lf of tetanus toxoid and 2 Lf of diphtheria toxoid) Keturah Flores FILM TECHNICIAN Work Phone: [facility] 05-20-2011 tetanus toxoid, redu valentino diphtheria toxoid, and acellular pertussis vaccine, adsorbed Keturah Flores FILM TECHNICIAN Work Phone: [facility] 10-23-2009 novel [id number], preservative-free, injectable Keturah Flores FILM TECHNICIAN Work Phone: [facility] Payers Date Payer Category Payer Self-pay 2024 Medicaid [employer] MEDICARE A DVANTAGE [id number] 2024 Medicare [id number] 2023 Managed Care HMO (unspecified) ONUR MOHR [id number] 2023-Present [address] [place] [address] HMO [id number] 2023 Private Health Insurance [id number] 1959 Unknown [id number] 1959 Unknown [id number] 2.16.840.1.393071.3.579.2. 593 1959 Unknown [id number] 2.16.840.1.906086.3.579.2. 593 1959 Unknown [id number] 2.16.840.1.405502.3.579.2. 1286 1959 Unknown [id number] 2.16.840.1.322131.3.579.2. 1259 1959 Unknown [id number] 2.16.840.1.460270.3.579.2. 1259 1959 Unknown [id number] 2.16.840.1.475795.3.579.2. 1259 1959 Unknown [id number] 2.16.840.1.419497.3.579.2. 1259 1959 Unknown [id number] 2.16.840.1.883356.3.579.2. 1259 1959 Unknown [id number] 2.16.840.1.014486.3.579.2. 1259 1959 Unknown [id number] 2.16.840.1.470091.3.579.2. 1259 1959 Unknown [id number] 2.16.840.1.803574.3.579.2. 1259 1959 Unknown [id number] 2.16.840.1.471542.3.579.2. 1259 1959 Unknown [id number] 2.16.840.1.658090.3.579.2. 1259 1959 Unknown [id number] 2.16.840.1.746325.3.579.2. 1259 1959 Unknown [id number] 2.16.840.1.333303.3.579.2. 1259 1959 Unknown [id number] 2.16.840.1.094856.3.579.2. 1259 Unknown [facility] Unknown [id number] 2.16.840.1.879800.3.579.2. 531 Social History Date Type Detail Facility Start: 03-19-2023 Tobacco smoking status OHIS Never smoked tobacco [facility] Work Phone: [...] to any clubs or organizations such as advent groups, unions, fraternal or athletic groups, or [...] got money to buy more. Never true [facility] Start: 07-16-2023 Alcohol Comment 1-0 drinks a week [facility] Start: 1960 Sex Assigned At Female [facility] Start: 03-19-2023 Gender identity Identifies as female gender (finding) [facility] Start: 03-19-2023 Sexual orientation Heterosexual (finding) [facility] Goals Date Patient Goal Desired Activity /State Personal health goal History of Present illness Narrative 11-30-2023 Keturah Flores, FILM TECHNICIAN - 11/30/2023 8:30 AM EST Note Date [...] it gets painful. documented in this encounter [facility] Evaluation note Note Date & Type Note Facility Evaluation note Diagnosis Acute pain of left knee- Primary Right elbow pain Pain in joint, upper arm documented in this encounter [facility] Evaluation note Note Date & Type Note Facility Evaluation note Diagnosis Acute pain of left knee documented in this encounter [facility] Evaluation note Note Date & Type Note Facility Evaluation note Diagnosis Acute pain of left knee- Primary documented in this encounter [facility] Evaluation note Note Date & Type [...] Osteopenia, unspecified location documented in this encounter [facility] History of Present illness Narrative Note Date & Type Note Facility History of Present illness Narrative Triage note, vital signs, past medical history and allergies [id number] female with complaints of a laceration to [...] and content) DATE CREATED AUTHOR 09/20/2020 [facility] pital DATE CREATED AUTHOR AUTHOR'S ORGANIZ ATION 04/02/2022 [employer] DATE CREATED AUTHOR AUTHOR'S ORGANIZ ATION 07/08/2022 [facility] dical Specialist DATE CREATED AUTHOR AUTHOR'S ORGANIZ ATION 01/15/2024 [facility] DATE CREATED AUTHOR AUTHOR'S ORGANIZ ATION 07/30/2024 [facility] d[facility] Specialists EPIC DATE CREATED AUTHOR AUTHOR'S ORGANIZ ATION 09/12/2024 [facility] ysician Group Care Teams (unrecognized sec tion and content) Photocopying Machine Operator Relationship Specialty Start Date End Date Emmy Grove MD [address] [place] [address] PCP - General Family Medicine 03/19/23 Saadia Deras NP [address] [place] [address] PCP - Medical [employer] 03/26/23 Photocopying Machine Operator Relationship Specialty Start Date End Date Emmy Grove MD [address] [place] [address] PCP - General Family Medicine 03/19/23 Saadia Deras NP [address] [place] [address] PCP - Medical [employer] 03/26/23 Photocopying Machine Operator Relationship Specialty Start Date End Date Emmy Grove MD [address] [place] [address] PCP - General Family Medicine 03/19/23 Saadia Deras NP [address] [place] [address] PCP - Medical [employer] 03/26/23 Photocopying Machine Operator Relationship Specialty Start Date End Date Emmy Grove MD [address] [place] [address] PCP - General Family Medicine 03/19/23 Saadia Deras NP [address] [place] [address] PCP - Medical [employer] 03/26/23 Photocopying Machine Operator Relationship Specialty Start Date End Date Emmy Grove MD [address] [place] [address] PCP - General Family Medicine 03/19/23 Saadia Deras NP [address] [place] [address] PCP - Medical [employer] 03/26/23 Photocopying Machine Operator Relationship Specialty Start Date End Date Emmy Grove MD [address] [place] [address] PCP - General Family Medicine 03/19/23 Saadia Deras NP [address] [place] [address] PCP - Medical [employer] 03/26/23 Photocopying Machine Operator Relationship Specialty Start Date End Date Emmy Grove MD [address] [facility] [place] [address] PCP - General Family Medicine 03/19/23 Saadia Deras NP [address] [place] [address] PCP - Medical [facility] 03/26/23 Photocopying Machine Operator Relationship Specialty Start Date End Date Emmy Grove MD [address] [place] [address] PCP - General Family Medicine 03/19/23 Emmy Grove MD [address] [place] [address] PCP - Aetdylan 03/26/24 Reason for Visit (unrecogniz ed section and content) Reason Comments Knee Pain Specialty Diagnoses / Procedures Referred By Imer motta Referred To Contact Physical Therapy Diagnoses Acute pain of left knee Procedures [place] OFFICE/OUTPATIENT NEW HIGH MDM 60 MINUTES Keturah Flores NP [address] [place] [address] Jose Molina, PT [address] [facility] [address] [place] [address] Referral ID Status Reason Start Date Expiration Date Visits Requested Visits Authorized [id number] Authorized Specialty Services Required 12/01/2023 05/29/2024 99 [...] BE BASED ON THE PRIMARY CLINICAL RECORDS. [facility]. provides no warranty or guarantee of the accuracy or completeness of information in this document.
== END 2024-09-26 14:55 | disposition home or self-care (01) ==
LOC: VC 10:31
PROVIDERS: PCP Radiology Diagnostic Radiology; Visit Provider Radiology Diagnostic Radiology
DX: I83.813 Varicose veins of bilateral lower extremities with pain (principal)
CPT/HCPCS: 36471